=== PATIENT | male | born 1945 | race Caucasian/White ===

== ENCOUNTER 2018-04-07 12:16 | Inpatient (IN) | payer MEDICAID, MEDICARE, OTHER ==
--- NOTE | 2018-04-07 12:36 | EDM.PDOC ---
ED HPI GENERAL MEDICAL PROBLEM - General Chief Complaint: Respiratory Problem Stated Complaint: breathing issueses Time Seen by Provider: 04/07/18 12:36 Source of Information: Reports: Patient History Limitations: Reports: No Limitations - History of Present Illness INITIAL COMMENTS - FREE TEXT/NARRATIVE: pt has been ill for the past week and has been sob. He has diarrhea and has had it for the past 2 days. He has not been on antibiotics. Onset: Gradual, Other (Sick for the past week. ) Duration: Day(s): Location: Reports: Chest, Abdomen Associated Symptoms: Reports: Cough, Shortness of Breath, Other ( diarrhea. ) - Related Data Allergies Allergy/AdvReac Type Severity Reaction Status Date / Time No Known Allergies Allergy Verified 04/07/18 12:21 Home Meds: Home Meds Albuterol Sulfate [Ventolin Hfa] 1 - 2 puff INH QID PRN 02/27/18 [History] Apixaban [Eliquis] 5 mg PO BID 02/27/18 [History] Carvedilol [Coreg] 25 mg PO BID 02/27/18 [History] Furosemide [Lasix] 20 mg PO DAILY 02/27/18 [History] Lisinopril [Prinivil] 40 mg PO DAILY 02/27/18 [History] predniSONE 1 tab PO ASDIRECTED 04/07/18 [History] Social & Family History - Tobacco Use Smoking Status *Q: Light Tobacco Smoker Years of Tobacco use: 50 Packs/Tins Daily: 0.4 - Recreational Drug Use Recreational Drug Use: No ED ROS GENERAL - Review of Systems Review Of Systems: See Below Constitutional: Reports: Chills, Malaise, Weakness HEENT: Reports: No Symptoms Respiratory: Reports: Shortness of Breath, Sputum Cardiovascular: Reports: No Symptoms Endocrine: Reports: No Symptoms GI/Abdominal: Reports: Diarrhea : Reports: No Symptoms Musculoskeletal: Reports: No Symptoms Skin: Reports: No Symptoms ED EXAM, GENERAL - Physical Exam Exam: See Below Free Text/Narrative:: pt arrived diaphoretic, hypotensive and sob. He has been ill for the past week at home. He has gotten progrssively weak each day. Exam Limited By: No Limitations General Appearance: Alert, Moderate Distress, Other (pupils are equal and reactive. ) Ears: Normal TMs Nose: Normal Inspection Throat/Mouth: Normal Inspection Head: Atraumatic Neck: Normal Inspection Respiratory/Chest: Decreased Breath Sounds, Crackles, Wheezing Cardiovascular: Tachycardia, Irregularly Irregular, Other (rate is in the 120 range. ) GI/Abdominal: Soft, Non-Tender Rectal (Males) Exam: Other (pt has no masses is stool looks very bloody. ) Back Exam: Normal Inspection Extremities: Other ( pt has pluse 1 edema. ) Neurological: Alert, Oriented, Normal Cognition Psychiatric: Depressed Mood Course - Vital Signs Last Recorded V/S: Last Vital Signs Temp 35.4 C 04/07/18 12:17 Pulse 126 H 04/07/18 13:27 Resp 37 H 04/07/18 13:27 BP 79/41 L 04/07/18 13:27 Pulse Ox 98 04/07/18 13:27 - Orders/Labs/Meds Orders: Active Orders 24 hr Category Date Time Status BIPAP Adult [RT BiPAP/CPAP] [RC] ASDIRECTED Care 04/07/18 13:43 Active EKG Documentation Completion [RC] ASDIRECTED Care 04/07/18 12:35 Active RT Aerosol Therapy [RC] ASDIRECTED Care 04/07/18 13:12 Active Chest 1V Frontal [CR] Stat Exams 04/07/18 12:35 Taken CLOSTRIDIUM DIFFICILE BY PCR [RM] Stat Lab 04/07/18 13:03 Ordered CULTURE BLOOD [BC] Urgent Lab 04/07/18 12:37 Received CULTURE BLOOD [BC] Urgent Lab 04/07/18 12:42 Received HGB [HEMOGLOBIN] [HEME] Stat Lab 04/07/18 13:49 Ordered RED BLOOD CELLS LP [BBK] Stat Lab 04/07/18 12:42 Received TYPE AND SCREEN [BBK] Stat Lab 04/07/18 12:42 Received UA W/MICROSCOPIC [URIN] Urgent Lab 04/07/18 12:34 Ordered Piperacillin/Tazobactam/Dext [Zosyn in Dextrose Iso- Med 04/07/18 14:00 Active Osmotic 3.375 GM] 3.375 gm Premix Bag 1 bag IV ONETIME Sodium Chloride 0.9% [Normal Saline] 1,000 ml Med 04/07/18 13:00 Active IV ASDIRECTED Sodium Chloride 0.9% [Normal Saline] 1,000 ml Med 04/07/18 13:45 Active IV ASDIRECTED Blood Culture x2 Reflex Set [OM.PC] Urgent Oth 04/07/18 12:55 Ordered EKG 12 Lead [EK] Routine Ther 04/07/18 12:35 Ordered Medication Orders Sodium Chloride (Normal Saline) 1,000 mls @ 999 mls/hr IV ASDIRECTED BOBO Last Admin: 04/07/18 13:26 Dose: 999 mls/hr Sodium Chloride (Normal Saline) 1,000 mls @ 999 mls/hr IV ASDIRECTED BOBO Piperacillin/Tazobactam/ (Dextrose 3.375 gm/ Premix) 50 mls @ 100 mls/hr IV ONETIME ONE Stop: 04/07/18 14:29 Labs: Laboratory Tests 04/07/18 04/07/18 04/07/18 Range/Units 12:12 12:12 12:12 WBC 20.0 H (4.5-11.0) K/uL RBC 4.08 L (4.30-5.90) M/uL Hgb 12.7 (12.0-15.0) g/dL Hct 38.8 L (40.0-54.0) % MCV 95 (80-98) fL MCH 31 (27-31) pg MCHC 33 (32-36) % Plt Count 205 (150-400) K/uL Neut % (Auto) 87 H (36-66) % Lymph % (Auto) 7 L (24-44) % Heard % (Auto) 6 (2-6) % Eos % (Auto) 0 L (2-4) % Baso % (Auto) 0 (0-1) % Puncture Site ABG pH (7.350-7.450) ABG pCO2 (35.0-42.0) mmHg ABG pO2 (75.0-100.0) mmHg ABG HCO3 (22.0-26.0) mmol/L ABG Total CO2 (23.0-27.0) mmol/L ABG O2 Saturation (95.0-98.0) % ABG O2 Content (15.0-23.0) %vol ABG Base Excess mm/L ABG Hemoglobin (13.5-18.0) g/dL ABG Oxyhemoglobin % ABG Carboxyhemoglobin (0.0-1.6) % ABG Methemoglobin % Markus Test O2 Delivery Device Oxygen Flow Rate L Sodium 140 (140-148) mmol/L Potassium 5.5 H (3.6-5.2) mmol/L Chloride 103 (100-108) mmol/L Carbon Dioxide 28 (21-32) mmol/L Anion Gap 14.5 H (5.0-14.0) mmol/L BUN 108 H* (7-18) mg/dL Creatinine 2.2 H (0.8-1.3) mg/dL Est Cr Clr Drug Dosing 24.67 mL/min Estimated GFR (MDRD) 29 L (>60) Glucose 114 H (74-106) mg/dL Lactic Acid (0.4-2.0) mmol/L Calcium 8.9 (8.5-10.1) mg/dL Total Bilirubin 0.4 (0.2-1.0) mg/dL AST 18 (15-37) U/L ALT 31 (12-78) U/L Alkaline Phosphatase 54 (46-116) U/L Troponin I 0.028 (0.000-0.056) ng/mL NT-Pro-B Natriuret Pep 3953 H (5-125) pg/mL Total Protein 5.7 L (6.4-8.2) g/dL Albumin 2.8 L (3.4-5.0) g/dL Globulin 2.9 (2.3-3.5) g/dL Albumin/Globulin Ratio 1.0 L (1.2-2.2) 04/07/18 04/07/18 Range/Units 12:12 13:25 WBC (4.5-11.0) K/uL RBC (4.30-5.90) M/uL Hgb (12.0-15.0) g/dL Hct (40.0-54.0) % MCV (80-98) fL MCH (27-31) pg MCHC (32-36) % Plt Count (150-400) K/uL Neut % (Auto) (36-66) % Lymph % (Auto) (24-44) % Heard % (Auto) (2-6) % Eos % (Auto) (2-4) % Baso % (Auto) (0-1) % Puncture Site Rt radial ABG pH 7.420 (7.350-7.450) ABG pCO2 33.7 L (35.0-42.0) mmHg ABG pO2 93.7 (75.0-100.0) mmHg ABG HCO3 21.4 L (22.0-26.0) mmol/L ABG Total CO2 19.2 L (23.0-27.0) mmol/L ABG O2 Saturation 96.7 (95.0-98.0) % ABG O2 Content 16.6 (15.0-23.0) %vol ABG Base Excess -1.9 mm/L ABG Hemoglobin 12.4 L (13.5-18.0) g/dL ABG Oxyhemoglobin 95.0 % ABG Carboxyhemoglobin 1.2 (0.0-1.6) % ABG Methemoglobin 0.6 % Markus Test Pass O2 Delivery Device Nasal cannula Oxygen Flow Rate 2 L Sodium (140-148) mmol/L Potassium (3.6-5.2) mmol/L Chloride (100-108) mmol/L Carbon Dioxide (21-32) mmol/L Anion Gap (5.0-14.0) mmol/L BUN (7-18) mg/dL Creatinine (0.8-1.3) mg/dL Est Cr Clr Drug Dosing mL/min Estimated GFR (MDRD) (>60) Glucose (74-106) mg/dL Lactic Acid 4.0 H (0.4-2.0) mmol/L Calcium (8.5-10.1) mg/dL Total Bilirubin (0.2-1.0) mg/dL AST (15-37) U/L ALT (12-78) U/L Alkaline Phosphatase (46-116) U/L Troponin I (0.000-0.056) ng/mL NT-Pro-B Natriuret Pep (5-125) pg/mL Total Protein (6.4-8.2) g/dL Albumin (3.4-5.0) g/dL Globulin (2.3-3.5) g/dL Albumin/Globulin Ratio (1.2-2.2) Meds: Medications Generic Name Dose Route Start Last Admin Trade Name Freq PRN Reason Stop Dose Admin Sodium Chloride 1,000 mls @ 999 mls/hr 04/07/18 13:00 04/07/18 13:26 Normal Saline IV 999 mls/hr ASDIRECTED BOBO Administration Sodium Chloride 1,000 mls @ 999 mls/hr 06/02/18 13:45 Normal Saline IV ASDIRECTED BOBO Piperacillin/Tazobactam/ 50 mls @ 100 mls/hr 04/07/18 14:00 Dextrose 3.375 gm/ Premix IV 04/07/18 14:29 ONETIME ONE Discontinued Medications Generic Name Dose Route Start Last Admin Trade Name Luh PRN Reason Stop Dose Admin Albuterol 2.5 mg 04/07/18 13:12 04/07/18 13:31 Proventil Neb Soln NEB 04/07/18 13:13 2.5 mg ONETIME ONE Administration Levofloxacin/Dextrose 500 mg/ 100 mls @ 100 mls/hr 04/07/18 13:34 Premix IV 04/07/18 14:33 ONETIME ONE Aztreonam 1 gm/ Sodium 50 mls @ 100 mls/hr 04/07/18 13:35 Chloride IV 04/07/18 14:04 ONETIME ONE - Re-Assessments/Exams Free Text/Narrative Re-Assessment/Exam: 04/07/18 14:08 stool looks very bloody. His chest xray does not reveal a definite infiltrate. His bp with any activity is down in the 70s. He does not have a fever. His lactic acid is 4. his wbc is greater than 20,000. Blood cultures were drawn. We do not have a urine at this point. His ekg shows atrial fib which is not new. Departure - Departure Time of Disposition: 14:11 Disposition: Admitted As Inpatient 64 Condition: Fair Clinical Impression: Sepsis, GI bleeding, Respiratory distress - Discharge Information Referrals: PCP,None [Primary Care Provider] - Forms: ED Department Discharge Care Plan Goals: admit to Dr johnson - My Orders Last 24 Hours: My Active Orders 04/07/18 12:34 UA W/MICROSCOPIC [URIN] Urgent 04/07/18 12:35 EKG Documentation Completion [RC] ASDIRECTED Chest 1V Frontal [CR] Stat EKG 12 Lead [EK] Routine 04/07/18 12:37 CULTURE BLOOD [BC] Urgent 04/07/18 12:42 CULTURE BLOOD [BC] Urgent RED BLOOD CELLS LP [BBK] Stat TYPE AND SCREEN [BBK] Stat 04/07/18 12:55 Blood Culture x2 Reflex Set [OM.PC] Urgent 04/07/18 13:00 Sodium Chloride 0.9% [Normal Saline] 1,000 ml IV ASDIRECTED 04/07/18 13:03 CLOSTRIDIUM DIFFICILE BY PCR [RM] Stat 04/07/18 13:12 RT Aerosol Therapy [RC] ASDIRECTED 04/07/18 13:43 BIPAP Adult [RT BiPAP/CPAP] [RC] ASDIRECTED 04/07/18 13:45 Sodium Chloride 0.9% [Normal Saline] 1,000 ml IV ASDIRECTED 04/07/18 13:49 HGB [HEMOGLOBIN] [HEME] Stat 04/07/18 14:00 Piperacillin/Tazobactam/Dext [Zosyn in Dextrose Iso-Osmotic 3.375 GM] 3.375 gm Premix Bag 1 bag IV ONETIME - Assessment/Plan Last 24 Hours: My Active Orders 04/07/18 12:34 UA W/MICROSCOPIC [URIN] Urgent 04/07/18 12:35 EKG Documentation Completion [RC] ASDIRECTED Chest 1V Frontal [CR] Stat EKG 12 Lead [EK] Routine 04/07/18 12:37 CULTURE BLOOD [BC] Urgent 04/07/18 12:42 CULTURE BLOOD [BC] Urgent RED BLOOD CELLS LP [BBK] Stat TYPE AND SCREEN [BBK] Stat 04/07/18 12:55 Blood Culture x2 Reflex Set [OM.PC] Urgent 04/07/18 13:00 Sodium Chloride 0.9% [Normal Saline] 1,000 ml IV ASDIRECTED 04/07/18 13:03 CLOSTRIDIUM DIFFICILE BY PCR [RM] Stat 04/07/18 13:12 RT Aerosol Therapy [RC] ASDIRECTED 04/07/18 13:43 BIPAP Adult [RT BiPAP/CPAP] [RC] ASDIRECTED 04/07/18 13:45 Sodium Chloride 0.9% [Normal Saline] 1,000 ml IV ASDIRECTED 04/07/18 13:49 HGB [HEMOGLOBIN] [HEME] Stat 04/07/18 14:00 Piperacillin/Tazobactam/Dext [Zosyn in Dextrose Iso-Osmotic 3.375 GM] 3.375 gm Premix Bag 1 bag IV ONETIME
[2018-04-07] MEDS ORDERED: Sodium Chloride 0.9% 1,000 ML IV SCH ×2 (13:00→13:45)
[2018-04-07] MEDS ORDERED: Albuterol 0.083% 2.5 MG/3 ML Neb Soln NEB ONE (13:12)
[2018-04-07] MEDS ORDERED: Levofloxacin/Dextrose 5%-Water 500 MG in Premix Bag 1 BAG IV ONE (13:34)
[2018-04-07] MEDS ORDERED: Piperacillin/Tazobactam 3.375 GM in Sodium Chloride 0.9% 50 ML IV SCH (13:45)
[2018-04-07] MEDS ORDERED: Piperacillin/Tazobactam/Dext 3.375 GM in Premix Bag 1 BAG IV ONE (14:00)
[2018-04-07] MEDS ORDERED: Pantoprazole 40 MG Vial IVPUSH ONE ×2 (14:12→22:32)
--- NOTE | 2018-04-07 14:27 | PCM.HP ---
H&P History of Present Illness - General Date of Service: 04/07/18 Admit Problem/Dx: Admission Diagnosis/Problem Admission Diagnosis/Problem Sepsis Source of Information: Patient, Provider, RN Notes Reviewed History Limitations: Reports: No Limitations - History of Present Illness Initial Comments - Free Text/Narative: Mr. Renee is a 72-year-old gentleman who is admitted through the emergency department with hypoxia and sepsis. He reports that he is had difficulty over the past few months, diagnosed with atrial fibrillation in December and is currently on anticoagulation with Eliquis. Over the last few days is become more short of breath and has had a cough which has been productive of lightly colored sputum. Also over the last 24 hours has experienced bloody diarrhea. He denies significant abdominal pain and is not aware that he is had any temperature elevation. White blood count is elevated 20,000 and his lactic acid level is elevated as well. Blood pressure in the emergency department found to be low and he was also noted to be hypoxic, oxygen saturation has improved with supplemental oxygen. Despite improvement in saturation his respiratory rate has remained in the upper 20s. - Related Data Allergies/Adverse Reactions: Allergies Allergy/AdvReac Type Severity Reaction Status Date / Time No Known Allergies Allergy Verified 04/07/18 12:21 Home Medications: Home Meds Albuterol Sulfate [Ventolin Hfa] 1 - 2 puff INH QID PRN 02/27/18 [History] Apixaban [Eliquis] 5 mg PO BID 02/27/18 [History] Carvedilol [Coreg] 25 mg PO BID 02/27/18 [History] Furosemide [Lasix] 20 mg PO DAILY 02/27/18 [History] Lisinopril [Prinivil] 40 mg PO DAILY 02/27/18 [History] predniSONE 1 tab PO ASDIRECTED 04/07/18 [History] Past Medical History HEENT History: Reports: Cataract, Hard of Hearing, Impaired Vision Cardiovascular History: Reports: Afib, Hypertension Respiratory History: Reports: COPD Hematologic History: Reports: Anticoagulation Therapy Social & Family History - Tobacco Use Smoking Status *Q: Light Tobacco Smoker Years of Tobacco use: 50 Packs/Tins Daily: 0.4 - Recreational Drug Use Recreational Drug Use: No H&P Review of Systems - Review of Systems: Review Of Systems: See Below General: Reports: Weakness. Denies: Fever, Chills HEENT: Reports: No Symptoms Pulmonary: Reports: Shortness of Breath, Wheezing, Cough, Sputum. Denies: Hemoptysis Cardiovascular: Reports: Dyspnea on Exertion. Denies: Chest Pain, Palpitations , Orthopnea, PND, Edema, Lightheadedness Gastrointestinal: Reports: Anorexia, Diarrhea, Hematochezia. Denies: Constipation, Difficulty Swallowing, Distension, Hematemesis, Nausea, Vomiting Genitourinary: Reports: No Symptoms Musculoskeletal: Reports: No Symptoms Skin: Reports: No Symptoms Psychiatric: Reports: No Symptoms Neurological: Reports: No Symptoms Hematologic/Lymphatic: Reports: No Symptoms Immunologic: Reports: No Symptoms Exam - Exam Exam: See Below - Vital Signs Vital Signs: Last Vital Signs Temp 95.8 F 04/07/18 12:17 Pulse 126 H 04/07/18 13:27 Resp 37 H 04/07/18 13:27 BP 79/41 L 04/07/18 13:27 Pulse Ox 98 04/07/18 13:27 Weight: 216 lb - Exam Quality Assessment: Supplemental Oxygen (BiPAP), Urinary Catheter, DVT Prophylaxis. No: Central Line/PICC General: Alert, Oriented, Cooperative, Moderate Distress HEENT: Conjunctiva Clear, Hearing Intact, Normal Nasal Septum, Posterior Pharynx Clear, Pupils Equal. No: Mucosa Moist & [place] Neck: Supple, Trachea Midline, +2 Carotid Pulse wo Bruit Lungs: Decreased Breath Sounds, Rhonchi, Wheezing. No: Crackles, Rales, Rub Cardiovascular: Normal S1, Normal S2, Irregular Rhythm, Tachycardia. No: Systolic Murmur, Diastolic Murmur GI/Abdominal Exam: Soft, Non-Tender, No Organomegaly, No Distention Back Exam: Normal Inspection, Full Range of Motion Extremities: Non-Tender, No Pedal Edema Skin: Warm, Dry, Intact Neurological: Cranial Nerves Intact, Strength Equal Bilateral, Normal Speech, Normal Tone, Sensation Intact. No: Focal Deficit Neuro Extensive - Mental Status: Alert, Oriented x3, Normal Mood/Affect, Normal Cognition, Memory Intact - Patient Data Lab Results Last 24 hrs: Laboratory Results - last 24 hr 04/07/18 04/07/18 04/07/18 Range/Units 12:12 12:12 12:12 WBC 20.0 H (4.5-11.0) K/uL RBC 4.08 L (4.30-5.90) M/uL Hgb 12.7 (12.0-15.0) g/dL Hct 38.8 L (40.0-54.0) % MCV 95 (80-98) fL MCH 31 (27-31) pg MCHC 33 (32-36) % Plt Count 205 (150-400) K/uL Neut % (Auto) 87 H (36-66) % Lymph % (Auto) 7 L (24-44) % Craven % (Auto) 6 (2-6) % Eos % (Auto) 0 L (2-4) % Baso % (Auto) 0 (0-1) % Puncture Site ABG pH (7.350-7.450) ABG pCO2 (35.0-42.0) mmHg ABG pO2 (75.0-100.0) mmHg ABG HCO3 (22.0-26.0) mmol/L ABG Total CO2 (23.0-27.0) mmol/L ABG O2 Saturation (95.0-98.0) % ABG O2 Content (15.0-23.0) %vol ABG Base Excess mm/L ABG Hemoglobin (13.5-18.0) g/dL ABG Oxyhemoglobin % ABG Carboxyhemoglobin (0.0-1.6) % ABG Methemoglobin % Markus Test O2 Delivery Device Oxygen Flow Rate L Sodium 140 (140-148) mmol/L Potassium 5.5 H (3.6-5.2) mmol/L Chloride 103 (100-108) mmol/L Carbon Dioxide 28 (21-32) mmol/L Anion Gap 14.5 H (5.0-14.0) mmol/L BUN 108 H* (7-18) mg/dL Creatinine 2.2 H (0.8-1.3) mg/dL Est Cr Clr Drug Dosing 24.67 mL/min Estimated GFR (MDRD) 29 L (>60) Glucose 114 H (74-106) mg/dL Lactic Acid (0.4-2.0) mmol/L Calcium 8.9 (8.5-10.1) mg/dL Total Bilirubin 0.4 (0.2-1.0) mg/dL AST 18 (15-37) U/L ALT 31 (12-78) U/L Alkaline Phosphatase 54 (46-116) U/L Troponin I 0.028 (0.000-0.056) ng/mL NT-Pro-B Natriuret Pep 3953 H (5-125) pg/mL Total Protein 5.7 L (6.4-8.2) g/dL Albumin 2.8 L (3.4-5.0) g/dL Globulin 2.9 (2.3-3.5) g/dL Albumin/Globulin Ratio 1.0 L (1.2-2.2) 04/07/18 04/07/18 Range/Units 12:12 13:25 WBC (4.5-11.0) K/uL RBC (4.30-5.90) M/uL Hgb (12.0-15.0) g/dL Hct (40.0-54.0) % MCV (80-98) fL MCH (27-31) pg MCHC (32-36) % Plt Count (150-400) K/uL Neut % (Auto) (36-66) % Lymph % (Auto) (24-44) % Craven % (Auto) (2-6) % Eos % (Auto) (2-4) % Baso % (Auto) (0-1) % Puncture Site Rt radial ABG pH 7.420 (7.350-7.450) ABG pCO2 33.7 L (35.0-42.0) mmHg ABG pO2 93.7 (75.0-100.0) mmHg ABG HCO3 21.4 L (22.0-26.0) mmol/L ABG Total CO2 19.2 L (23.0-27.0) mmol/L ABG O2 Saturation 96.7 (95.0-98.0) % ABG O2 Content 16.6 (15.0-23.0) %vol ABG Base Excess -1.9 mm/L ABG Hemoglobin 12.4 L (13.5-18.0) g/dL ABG Oxyhemoglobin 95.0 % ABG Carboxyhemoglobin 1.2 (0.0-1.6) % ABG Methemoglobin 0.6 % Markus Test Pass O2 Delivery Device Nasal cannula Oxygen Flow Rate 2 L Sodium (140-148) mmol/L Potassium (3.6-5.2) mmol/L Chloride (100-108) mmol/L Carbon Dioxide (21-32) mmol/L Anion Gap (5.0-14.0) mmol/L BUN (7-18) mg/dL Creatinine (0.8-1.3) mg/dL Est Cr Clr Drug Dosing mL/min Estimated GFR (MDRD) (>60) Glucose (74-106) mg/dL Lactic Acid 4.0 H (0.4-2.0) mmol/L Calcium (8.5-10.1) mg/dL Total Bilirubin (0.2-1.0) mg/dL AST (15-37) U/L ALT (12-78) U/L Alkaline Phosphatase (46-116) U/L Troponin I (0.000-0.056) ng/mL NT-Pro-B Natriuret Pep (5-125) pg/mL Total Protein (6.4-8.2) g/dL Albumin (3.4-5.0) g/dL Globulin (2.3-3.5) g/dL Albumin/Globulin Ratio (1.2-2.2) Result Diagrams: 04/07/18 14:18 04/07/18 12:12 *Q Meaningful Use (ADM) - VTE *Q VTE Pharmacological Contraindications *Q: High INR Value - VTE Risk Assess *Q Each Risk Factor Represents 1 Point: Obesity ( BMI > 25 kg/m2), Sepsis, Abnormal Pulmonary Function (COPD) Total Score 1 Point Risk Factors: 3 Each Risk Factor Represents 2 Points: Age 60 - 74 Years Total Score 2 Point Risk Factors: 2 Each Risk Factor Represents 3 Points: None Total Score 3 Point Risk Factors: 0 Each Risk Factor Represents 5 Points: None Total Score 5 Point Risk Factors: 0 Venous Thromboembolism Risk Factor Score *Q: 5 Problem List Initiated/Reviewed/Updated: Yes Orders Last 24hrs: Active Orders 24 hr Category Date Time Status Patient Status Manage Transfer [TRANSFER] Routine ADT 04/07/18 14:07 Ordered BIPAP Adult [RT BiPAP/CPAP] [] ASDIRECTED Care 04/07/18 13:43 Active EKG Documentation Completion [RC] ASDIRECTED Care 04/07/18 12:35 Active RT Aerosol Therapy [RC] ASDIRECTED Care 04/07/18 13:12 Active Chest 1V Frontal [CR] Stat Exams 04/07/18 12:35 Taken CLOSTRIDIUM DIFFICILE BY PCR [RM] Stat Lab 04/07/18 13:03 Ordered CULTURE BLOOD [BC] Urgent Lab 04/07/18 12:37 Received CULTURE BLOOD [BC] Urgent Lab 04/07/18 12:42 Received HGB [HEMOGLOBIN] [HEME] Stat Lab 04/07/18 13:49 Ordered RED BLOOD CELLS LP [BBK] Stat Lab 04/07/18 12:42 Received TYPE AND SCREEN [BBK] Stat Lab 04/07/18 12:42 Received UA W/MICROSCOPIC [URIN] Urgent Lab 04/07/18 12:34 Ordered Piperacillin/Tazobactam/Dext [Zosyn in Dextrose Iso- Med 04/07/18 14:00 Active Osmotic 3.375 GM] 3.375 gm Premix Bag 1 bag IV ONETIME Sodium Chloride 0.9% [Normal Saline] 1,000 ml Med 04/07/18 13:00 Active IV ASDIRECTED Sodium Chloride 0.9% [Normal Saline] 1,000 ml Med 04/07/18 13:45 Active IV ASDIRECTED Blood Culture x2 Reflex Set [OM.PC] Urgent Oth 04/07/18 12:55 Ordered Resuscitation Status Routine Resus Stat 04/07/18 14:10 Ordered EKG 12 Lead [EK] Routine Ther 04/07/18 12:35 Ordered Medication Orders Sodium Chloride (Normal Saline) 1,000 mls @ 999 mls/hr IV ASDIRECTED BOBO Last Admin: 04/07/18 13:26 Dose: 999 mls/hr Sodium Chloride (Normal Saline) 1,000 mls @ 999 mls/hr IV ASDIRECTED [facility] Piperacillin/Tazobactam/ (Dextrose 3.375 gm/ Premix) 50 mls @ 100 mls/hr IV ONETIME ONE Stop: 04/07/18 14:29 Last Admin: 04/07/18 14:15 Dose: 100 mls/hr Assessment/Plan Comment:: ASSESSMENT AND PLAN SEPSIS-most likely source is pulmonary, he has had some blood in his stool but denies significant abdominal pain or other GI symptoms. No other obvious source of infection identified thus far on evaluation. -Blood cultures pending -IV fluids per sepsis protocol -Norepinephrine IV if no improvement with IV fluids -CT scan of the chest, abdomen, and pelvis -IV vancomycin, Zosyn, and levofloxacin, pending culture results HYPOXIC RESPIRATORY FAILURE-underlying COPD, but is not oxygen dependent at home. Likely secondary to underlying pulmonary infection, although chest x-ray appears to be clear -CT scan of the chest as above -Noninvasive positive pressure ventilation -Supplemental oxygen as needed -Nebulized albuterol and duo nebs -Solu-Medrol 40 mg IV every 6 hours ACUTE KIDNEY INJURY-history of underlying chronic kidney disease -Closely monitor urine output and renal function ATRIAL FIBRILLATION-rate elevated, likely secondary to sepsis and hypoxia -Cardiac monitoring -Resume rate slowing medication when hypotension has resolved -Continue anticoagulation with Eliquis, although may need to consider holding this if he continues to have some blood in his stool HEMATOCHEZIA-at this point seems to be relatively mild bleed -Follow-up hemoglobin in a.m., sooner if bleeding seems to increase -Colonoscopy when hemodynamically stable and respiratory status improves MAINTENANCE ISSUES -DVT prophylaxis; current anticoagulation should provide adequate DVT prophylaxis -GI prophylaxis; not indicated -Núñez catheter; will be placed to closely monitor urine output -Nutrition; regular diet -Nicotine dependence; not required CODE STATUS-FULL CODE ADMISSION STATUS-patient will be admitted to inpatient status, expect at least a 2 night hospital stay for evaluation and management of problems as outlined above. At the time of this admission I do not reasonably expected evaluation and management of this problem will require more than a 96 hour hospital stay. DISPOSITION-anticipate discharge to home after the hospital stay. PRIMARY CARE PROVIDER-Dr. Grant
[2018-04-07] MEDS ORDERED: Ondansetron 4 MG/2 ML SDV IV PRN (14:39)
[2018-04-07] MEDS ORDERED: Lactated Ringers 1,000 ML IV SCH (14:39)
[2018-04-07] MEDS ORDERED: Magnesium Hydroxide 400 MG/5 ML Susp 30 ML Cup PO PRN (14:39)
[2018-04-07] MEDS ORDERED: Polyethylene Glycol 3350 Powder 17 GM Packet PO PRN (14:39)
[2018-04-07] MEDS ORDERED: Acetaminophen 325 MG Tab PO PRN (14:39)
[2018-04-07] MEDS ORDERED: oxyCODONE 5 MG Tab PO PRN (14:39)
[2018-04-07] MEDS ORDERED: Sodium Chloride 0.9% 10 ML Syringe FLUSH PRN (14:39)
[2018-04-07] MEDS ORDERED: Albuterol 0.083% 2.5 MG/3 ML Neb Soln NEB PRN (14:39)
[2018-04-07] MEDS ORDERED: Vancomycin 1 GM SDV IV SCH (15:00)
[2018-04-07] MEDS: Albuterol/Ipratropium 3.0-0.5 MG/3 ML Neb Soln NEB SCH ×2 (15:01→21:22)
[2018-04-07] MEDS: methylPREDNISolone Sodium Succinate 40 MG/1 ML SDV IVPUSH SCH ×2 (15:29→21:22)
[2018-04-07] MEDS: Levofloxacin/Dextrose 5%-Water 750 MG in Premix Bag 1 BAG IV SCH (15:34)
[2018-04-07] MEDS ORDERED: Norepinephrine 4 MG/4 ML SDV ONE (17:06)
[2018-04-07] MEDS ORDERED: Dextrose 5% in Water 250 ML ONE (17:08)
[2018-04-07] MEDS: Norepinephrine 4 MG in Dextrose 5% in Water 246 ML IV SCH ×2 (17:19)
[2018-04-07] MEDS: Lactated Ringers 1,000 ML IV SCH (17:42)
[2018-04-07] MEDS: Piperacillin/Tazobactam/Dext 3.375 GM in Premix Bag 1 BAG IV SCH (20:04)
[2018-04-07] MEDS: Apixaban 5 MG Tab PO SCH (21:22)
[2018-04-07] MEDS ORDERED: Lactated Ringers 500 ML IV ONE (22:03)
[2018-04-07] MEDS ORDERED: Sodium Chloride 0.9% 100 ML with Pantoprazole 80 MG IV SCH ×2 (22:45)
[2018-04-07] MEDS ORDERED: Vasopressin 20 Units/1 ML MDV ONE ×2 (22:54→22:58)
[2018-04-07] MEDS ORDERED: Sodium Chloride 0.9% 100 ML ONE (22:59)
[2018-04-07] MEDS ORDERED: Pantoprazole 80 MG in Sodium Chloride 0.9% 100 ML IV SCH (23:00)
[2018-04-08] MEDS: Lactated Ringers 1,000 ML IV SCH ×3 (01:27→16:47)
[2018-04-08] MEDS: Piperacillin/Tazobactam/Dext 3.375 GM in Premix Bag 1 BAG IV SCH ×4 (02:15→19:46)
[2018-04-08] MEDS: Norepinephrine 4 MG in Dextrose 5% in Water 246 ML IV SCH ×8 (02:16→21:53)
[2018-04-08] MEDS: methylPREDNISolone Sodium Succinate 40 MG/1 ML SDV IVPUSH SCH ×4 (02:30→20:31)
[2018-04-08] MEDS: Albuterol/Ipratropium 3.0-0.5 MG/3 ML Neb Soln NEB SCH ×4 (07:28→20:31)
--- NOTE | 2018-04-08 09:05 | PCM.PN ---
- General Info Date of Service: 04/08/18 Admission Dx/Problem (Free Text): Admission Diagnosis/Problem Admission Diagnosis/Problem Sepsis Functional Status: Reports: Pain Controlled, Tolerating Diet, Urinating - Review of Systems General: Reports: No Symptoms HEENT: Reports: No Symptoms Pulmonary: Reports: Shortness of Breath (not beyond baseline) Cardiovascular: Reports: No Symptoms Gastrointestinal: Reports: Hematochezia (feels it is improving) Genitourinary: Reports: No Symptoms Musculoskeletal: Reports: No Symptoms Skin: Reports: No Symptoms - Patient Data Vitals - Most Recent: Last Vital Signs Temp 97.6 F 04/08/18 07:33 Pulse 94 04/08/18 07:33 Resp 20 04/08/18 07:33 BP 96/43 L 04/08/18 07:33 Pulse Ox 96 04/08/18 07:33 Weight - Most Recent: 97.976 kg I&O - Last 24 Hours: Intake & Output 04/07/18 04/08/18 04/08/18 22:59 06:59 14:59 Intake Total 2281 2626 Output Total 590 1075 Balance 1691 1551 Lab Results Last 24 Hours: Laboratory Results - last 24 hr 04/07/18 04/07/18 04/07/18 Range/Units 12:12 12:12 12:12 WBC 20.0 H (4.5-11.0) K/uL RBC 4.08 L (4.30-5.90) M/uL Hgb 12.7 (12.0-15.0) g/dL Hct 38.8 L (40.0-54.0) % MCV 95 (80-98) fL MCH 31 (27-31) pg MCHC 33 (32-36) % Plt Count 205 (150-400) K/uL Neut % (Auto) 87 H (36-66) % Lymph % (Auto) 7 L (24-44) % [place] % (Auto) 6 (2-6) % Eos % (Auto) 0 L (2-4) % Baso % (Auto) 0 (0-1) % Puncture Site ABG pH (7.350-7.450) ABG pCO2 (35.0-42.0) mmHg ABG pO2 (75.0-100.0) mmHg ABG HCO3 (22.0-26.0) mmol/L ABG Total CO2 (23.0-27.0) mmol/L ABG O2 Saturation (95.0-98.0) % ABG O2 Content (15.0-23.0) %vol ABG Base Excess mm/L ABG Hemoglobin (13.5-18.0) g/dL ABG Oxyhemoglobin % ABG Carboxyhemoglobin (0.0-1.6) % ABG Methemoglobin % Markus Test O2 Delivery Device Oxygen Flow Rate L Sodium 140 (140-148) mmol/L Potassium 5.5 H (3.6-5.2) mmol/L Chloride 103 (100-108) mmol/L Carbon Dioxide 28 (21-32) mmol/L Anion Gap 14.5 H (5.0-14.0) mmol/L BUN 108 H* (7-18) mg/dL Creatinine 2.2 H (0.8-1.3) mg/dL Est Cr Clr Drug Dosing 24.67 mL/min Estimated GFR (MDRD) 29 L (>60) Glucose 114 H (74-106) mg/dL Lactic Acid (0.4-2.0) mmol/L Calcium 8.9 (8.5-10.1) mg/dL Magnesium (1.8-2.4) mg/dL Total Bilirubin 0.4 (0.2-1.0) mg/dL AST 18 (15-37) U/L ALT 31 (12-78) U/L Alkaline Phosphatase 54 (46-116) U/L Troponin I 0.028 (0.000-0.056) ng/mL NT-Pro-B Natriuret Pep 3953 H (5-125) pg/mL Total Protein 5.7 L (6.4-8.2) g/dL Albumin 2.8 L (3.4-5.0) g/dL Globulin 2.9 (2.3-3.5) g/dL Albumin/Globulin Ratio 1.0 L (1.2-2.2) Urine Color Urine Appearance Urine pH (4.5-8.0) Ur Specific [place] (1.008-1.030) Urine Protein (NEGATIVE) mg/dL Urine Glucose (UA) (NEGATIVE) mg/dL Urine Ketones (NEGATIVE) mg/dL Urine Occult Blood (NEGATIVE) Urine Nitrite (NEGAITVE) Urine Bilirubin (NEGATIVE) Urine Urobilinogen (NORMAL) mg/dL Ur Leukocyte Esterase (NEGATIVE) Urine RBC (0-5) Urine WBC (0-5) Ur Epithelial Cells Amorphous Sediment Urine Bacteria Urine Mucus Blood Type Gel Antibody Screen Crossmatch 04/07/18 04/07/18 04/07/18 Range/Units 12:12 12:34 12:42 WBC (4.5-11.0) K/uL RBC (4.30-5.90) M/uL Hgb (12.0-15.0) g/dL Hct (40.0-54.0) % MCV (80-98) fL MCH (27-31) pg MCHC (32-36) % Plt Count (150-400) K/uL Neut % (Auto) (36-66) % Lymph % (Auto) (24-44) % [place] % (Auto) (2-6) % Eos % (Auto) (2-4) % Baso % (Auto) (0-1) % Puncture Site ABG pH (7.350-7.450) ABG pCO2 (35.0-42.0) mmHg ABG pO2 (75.0-100.0) mmHg ABG HCO3 (22.0-26.0) mmol/L ABG Total CO2 (23.0-27.0) mmol/L ABG O2 Saturation (95.0-98.0) % ABG O2 Content (15.0-23.0) %vol ABG Base Excess mm/L ABG Hemoglobin (13.5-18.0) g/dL ABG Oxyhemoglobin % ABG Carboxyhemoglobin (0.0-1.6) % ABG Methemoglobin % Markus Test O2 Delivery Device Oxygen Flow Rate L Sodium (140-148) mmol/L Potassium (3.6-5.2) mmol/L Chloride (100-108) mmol/L Carbon Dioxide (21-32) mmol/L Anion Gap (5.0-14.0) mmol/L BUN (7-18) mg/dL Creatinine (0.8-1.3) mg/dL Est Cr Clr Drug Dosing mL/min Estimated GFR (MDRD) (>60) Glucose (74-106) mg/dL Lactic Acid 4.0 H (0.4-2.0) mmol/L Calcium (8.5-10.1) mg/dL Magnesium (1.8-2.4) mg/dL Total Bilirubin (0.2-1.0) mg/dL AST (15-37) U/L ALT (12-78) U/L Alkaline Phosphatase (46-116) U/L Troponin I (0.000-0.056) ng/mL NT-Pro-B Natriuret Pep (5-125) pg/mL Total Protein (6.4-8.2) g/dL Albumin (3.4-5.0) g/dL Globulin (2.3-3.5) g/dL Albumin/Globulin Ratio (1.2-2.2) Urine Color Yellow Urine Appearance Clear Urine pH 5.0 (4.5-8.0) Ur Specific [place] 1.015 (1.008-1.030) Urine Protein Negative (NEGATIVE) mg/dL Urine Glucose (UA) Normal (NEGATIVE) mg/dL Urine Ketones Negative (NEGATIVE) mg/dL Urine Occult Blood Negative (NEGATIVE) Urine Nitrite Negative (NEGAITVE) Urine Bilirubin Small (NEGATIVE) Urine Urobilinogen Normal (NORMAL) mg/dL Ur Leukocyte Esterase Negative (NEGATIVE) Urine RBC Not seen (0-5) Urine WBC Not seen (0-5) Ur Epithelial Cells Not seen Amorphous Sediment Few Urine Bacteria Not seen Urine Mucus Not seen Blood Type O POSITIVE Gel Antibody Screen Negative Crossmatch See Detail 04/07/18 04/07/18 04/07/18 Range/Units 13:25 14:18 19:26 WBC (4.5-11.0) K/uL RBC (4.30-5.90) M/uL Hgb 11.6 L (12.0-15.0) g/dL Hct (40.0-54.0) % MCV (80-98) fL MCH (27-31) pg MCHC (32-36) % Plt Count (150-400) K/uL Neut % (Auto) (36-66) % Lymph % (Auto) (24-44) % [place] % (Auto) (2-6) % Eos % (Auto) (2-4) % Baso % (Auto) (0-1) % Puncture Site Rt radial ABG pH 7.420 (7.350-7.450) ABG pCO2 33.7 L (35.0-42.0) mmHg ABG pO2 93.7 (75.0-100.0) mmHg ABG HCO3 21.4 L (22.0-26.0) mmol/L ABG Total CO2 19.2 L (23.0-27.0) mmol/L ABG O2 Saturation 96.7 (95.0-98.0) % ABG O2 Content 16.6 (15.0-23.0) %vol ABG Base Excess -1.9 mm/L ABG Hemoglobin 12.4 L (13.5-18.0) g/dL ABG Oxyhemoglobin 95.0 % ABG Carboxyhemoglobin 1.2 (0.0-1.6) % ABG Methemoglobin 0.6 % Markus Test Pass O2 Delivery Device Nasal cannula Oxygen Flow Rate 2 L Sodium (140-148) mmol/L Potassium (3.6-5.2) mmol/L Chloride (100-108) mmol/L Carbon Dioxide (21-32) mmol/L Anion Gap (5.0-14.0) mmol/L BUN (7-18) mg/dL Creatinine (0.8-1.3) mg/dL Est Cr Clr Drug Dosing mL/min Estimated GFR (MDRD) (>60) Glucose (74-106) mg/dL Lactic Acid 2.6 H (0.4-2.0) mmol/L Calcium (8.5-10.1) mg/dL Magnesium (1.8-2.4) mg/dL Total Bilirubin (0.2-1.0) mg/dL AST (15-37) U/L ALT (12-78) U/L Alkaline Phosphatase (46-116) U/L Troponin I (0.000-0.056) ng/mL NT-Pro-B Natriuret Pep (5-125) pg/mL Total Protein (6.4-8.2) g/dL Albumin (3.4-5.0) g/dL Globulin (2.3-3.5) g/dL Albumin/Globulin Ratio (1.2-2.2) Urine Color Urine Appearance Urine pH (4.5-8.0) Ur Specific [place] (1.008-1.030) Urine Protein (NEGATIVE) mg/dL Urine Glucose (UA) (NEGATIVE) mg/dL Urine Ketones (NEGATIVE) mg/dL Urine Occult Blood (NEGATIVE) Urine Nitrite (NEGAITVE) Urine Bilirubin (NEGATIVE) Urine Urobilinogen (NORMAL) mg/dL Ur Leukocyte Esterase (NEGATIVE) Urine RBC (0-5) Urine WBC (0-5) Ur Epithelial Cells Amorphous Sediment Urine Bacteria Urine Mucus Blood Type Gel Antibody Screen Crossmatch 04/07/18 04/08/18 04/08/18 Range/Units 22:22 05:58 05:58 WBC 22.8 H (4.5-11.0) K/uL RBC 3.11 L (4.30-5.90) M/uL Hgb 10.0 L 9.7 L (12.0-15.0) g/dL Hct 29.5 L (40.0-54.0) % MCV 95 (80-98) fL MCH 31 (27-31) pg MCHC 33 (32-36) % Plt Count 166 (150-400) K/uL Neut % (Auto) 89 H (36-66) % Lymph % (Auto) 5 L (24-44) % [place] % (Auto) 6 (2-6) % Eos % (Auto) 0 L (2-4) % Baso % (Auto) 0 (0-1) % Puncture Site ABG pH (7.350-7.450) ABG pCO2 (35.0-42.0) mmHg ABG pO2 (75.0-100.0) mmHg ABG HCO3 (22.0-26.0) mmol/L ABG Total CO2 (23.0-27.0) mmol/L ABG O2 Saturation (95.0-98.0) % ABG O2 Content (15.0-23.0) %vol ABG Base Excess mm/L ABG Hemoglobin (13.5-18.0) g/dL ABG Oxyhemoglobin % ABG Carboxyhemoglobin (0.0-1.6) % ABG Methemoglobin % Markus Test O2 Delivery Device Oxygen Flow Rate L Sodium (140-148) mmol/L Potassium (3.6-5.2) mmol/L Chloride (100-108) mmol/L Carbon Dioxide (21-32) mmol/L Anion Gap (5.0-14.0) mmol/L BUN (7-18) mg/dL Creatinine (0.8-1.3) mg/dL Est Cr Clr Drug Dosing mL/min Estimated GFR (MDRD) (>60) Glucose (74-106) mg/dL Lactic Acid 3.3 H (0.4-2.0) mmol/L Calcium (8.5-10.1) mg/dL Magnesium (1.8-2.4) mg/dL Total Bilirubin (0.2-1.0) mg/dL AST (15-37) U/L ALT (12-78) U/L Alkaline Phosphatase (46-116) U/L Troponin I (0.000-0.056) ng/mL NT-Pro-B Natriuret Pep (5-125) pg/mL Total Protein (6.4-8.2) g/dL Albumin (3.4-5.0) g/dL Globulin (2.3-3.5) g/dL Albumin/Globulin Ratio (1.2-2.2) Urine Color Urine Appearance Urine pH (4.5-8.0) Ur Specific [place] (1.008-1.030) Urine Protein (NEGATIVE) mg/dL Urine Glucose (UA) (NEGATIVE) mg/dL Urine Ketones (NEGATIVE) mg/dL Urine Occult Blood (NEGATIVE) Urine Nitrite (NEGAITVE) Urine Bilirubin (NEGATIVE) Urine Urobilinogen (NORMAL) mg/dL Ur Leukocyte Esterase (NEGATIVE) Urine RBC (0-5) Urine WBC (0-5) Ur Epithelial Cells Amorphous Sediment Urine Bacteria Urine Mucus Blood Type Gel Antibody Screen Crossmatch 04/08/18 Range/Units 05:58 WBC (4.5-11.0) K/uL RBC (4.30-5.90) M/uL Hgb (12.0-15.0) g/dL Hct (40.0-54.0) % MCV (80-98) fL MCH (27-31) pg MCHC (32-36) % Plt Count (150-400) K/uL Neut % (Auto) (36-66) % Lymph % (Auto) (24-44) % [place] % (Auto) (2-6) % Eos % (Auto) (2-4) % Baso % (Auto) (0-1) % Puncture Site ABG pH (7.350-7.450) ABG pCO2 (35.0-42.0) mmHg ABG pO2 (75.0-100.0) mmHg ABG HCO3 (22.0-26.0) mmol/L ABG Total CO2 (23.0-27.0) mmol/L ABG O2 Saturation (95.0-98.0) % ABG O2 Content (15.0-23.0) %vol ABG Base Excess mm/L ABG Hemoglobin (13.5-18.0) g/dL ABG Oxyhemoglobin % ABG Carboxyhemoglobin (0.0-1.6) % ABG Methemoglobin % Markus Test O2 Delivery Device Oxygen Flow Rate L Sodium 139 L (140-148) mmol/L Potassium 5.2 (3.6-5.2) mmol/L Chloride 105 (100-108) mmol/L Carbon Dioxide 25 (21-32) mmol/L Anion Gap 14.2 H (5.0-14.0) mmol/L BUN 94 H* (7-18) mg/dL Creatinine 1.7 H (0.8-1.3) mg/dL Est Cr Clr Drug Dosing 31.92 mL/min Estimated GFR (MDRD) 40 L (>60) Glucose 220 H (74-106) mg/dL Lactic Acid (0.4-2.0) mmol/L Calcium 8.3 L (8.5-10.1) mg/dL Magnesium 1.7 L (1.8-2.4) mg/dL Total Bilirubin (0.2-1.0) mg/dL AST (15-37) U/L ALT (12-78) U/L Alkaline Phosphatase (46-116) U/L Troponin I (0.000-0.056) ng/mL NT-Pro-B Natriuret Pep (5-125) pg/mL Total Protein (6.4-8.2) g/dL Albumin (3.4-5.0) g/dL Globulin (2.3-3.5) g/dL Albumin/Globulin Ratio (1.2-2.2) Urine Color Urine Appearance Urine pH (4.5-8.0) Ur Specific [place] (1.008-1.030) Urine Protein (NEGATIVE) mg/dL Urine Glucose (UA) (NEGATIVE) mg/dL Urine Ketones (NEGATIVE) mg/dL Urine Occult Blood (NEGATIVE) Urine Nitrite (NEGAITVE) Urine Bilirubin (NEGATIVE) Urine Urobilinogen (NORMAL) mg/dL Ur Leukocyte Esterase (NEGATIVE) Urine RBC (0-5) Urine WBC (0-5) Ur Epithelial Cells Amorphous Sediment Urine Bacteria Urine Mucus Blood Type Gel Antibody Screen Crossmatch [place] Results Last 24 Hours: Microbiology 04/07/18 13:00 Gram Stain - Final Sputum - Expectorated Respiratory Culture - Preliminary Med Orders - Current: Current Medications Acetaminophen (Tylenol) 650 mg PO Q4H PRN PRN Reason: Pain (Mild 1-3)/fever Albuterol (Proventil Neb Soln) 2.5 mg NEB Q4H PRN PRN Reason: Shortness Of Breath/wheezing Last Admin: 04/08/18 03:47 Dose: 2.5 mg Albuterol/Ipratropium (Duoneb 3.0-0.5 Mg/3 Ml) 3 ml NEB QIDRT [facility] Last Admin: 04/08/18 07:28 Dose: 3 ml Apixaban (Eliquis) 5 mg PO BID [facility] Last Admin: 04/07/18 21:22 Dose: 5 mg Lactated Ringer's (Ringers, Lactated) 1,000 mls @ 125 mls/hr IV ASDIRECTED [facility] Last Admin: 04/08/18 08:33 Dose: 125 mls/hr Levofloxacin/Dextrose 750 mg/ (Premix) 150 mls @ 100 mls/hr IV Q48H [facility] Last Admin: 04/07/18 15:34 Dose: 100 mls/hr Piperacillin/Tazobactam/ (Dextrose 3.375 gm/ Premix) 50 mls @ 100 mls/hr IV Q6H [facility] Last Admin: 04/08/18 08:24 Dose: 100 mls/hr Vancomycin HCl 1.5 gm/ Sodium (Chloride) 250 mls @ 167 mls/hr IV Q24H [facility] Last Admin: 04/07/18 17:26 Dose: 167 mls/hr Norepinephrine Bitartrate 4 mg (/ Dextrose/Water) 250 mls @ 7.5 mls/hr IV TITRATE BOBO; Protocol Last Titration: 04/08/18 08:05 Dose: 12 mcg/min, 45 mls/hr Vasopressin 100 units/ Sodium (Chloride) 100 mls @ 6 mls/hr IV TITRATE BOBO; Protocol Last Titration: 04/08/18 08:42 Dose: 0.05 units/min, 3 mls/hr Pantoprazole Sodium 80 mg/ (Sodium Chloride) 100 mls @ 10 mls/hr IV Q10H [facility] Last Admin: 04/07/18 23:19 Dose: 8 mls/hr Magnesium Sulfate 2 gm/ Premix 50 mls @ 12.5 mls/hr IV ONETIME ONE Stop: 04/08/18 12:57 Magnesium Hydroxide (Milk Of Magnesia) 30 ml PO Q12H PRN PRN Reason: Constipation Methylprednisolone Sodium Succinate (Solu-Medrol) 40 mg IVPUSH Q6H [facility] Last Admin: 04/08/18 02:30 Dose: 40 mg Ondansetron HCl (Zofran) 4 mg IV Q4H PRN PRN Reason: Nausea/Vomiting Oxycodone HCl (Oxycodone) 5 mg PO Q4H PRN PRN Reason: Pain (moderate 4-6) Polyethylene Glycol (Miralax) 17 gm PO DAILY PRN PRN Reason: Constipation Senna/Docusate Sodium (Senna Plus) 1 tab PO BID PRN PRN Reason: Constipation Sodium Chloride (Saline Flush) 10 ml FLUSH ASDIRECTED PRN PRN Reason: Keep Vein Open Discontinued Medications Albuterol (Proventil Neb Soln) 2.5 mg NEB ONETIME ONE Stop: 04/07/18 13:13 Last Admin: 04/07/18 13:31 Dose: 2.5 mg Sodium Chloride (Normal Saline) 1,000 mls @ 999 mls/hr IV ASDIRECTED [facility] Last Admin: 04/07/18 13:26 Dose: 999 mls/hr Levofloxacin/Dextrose 500 mg/ (Premix) 100 mls @ 100 mls/hr IV ONETIME ONE Stop: 04/07/18 14:33 Last Admin: 04/07/18 20:08 Dose: Not Given Aztreonam 1 gm/ Sodium (Chloride) 50 mls @ 100 mls/hr IV ONETIME ONE Stop: 04/07/18 14:04 Last Admin: 04/07/18 20:08 Dose: Not Given Sodium Chloride (Normal Saline) 1,000 mls @ 999 mls/hr IV ASDIRECTED [facility] Last Admin: 04/07/18 14:24 Dose: 999 mls/hr Piperacillin/Tazobactam/ (Dextrose 3.375 gm/ Premix) 50 mls @ 100 mls/hr IV ONETIME ONE Stop: 04/07/18 14:29 Last Admin: 04/07/18 14:15 Dose: 100 mls/hr Lactated Ringer's (Ringers, Lactated) 1,000 mls @ 500 mls/hr IV ASDIRECTED [facility] Stop: 04/07/18 18:40 Dextrose/Water (Dextrose 5% In Water) Confirm Administered Dose 250 mls @ as directed .ROUTE .STK-MED ONE Stop: 04/07/18 17:09 Last Admin: 04/07/18 17:46 Dose: Not Given Lactated Ringer's (Ringers, Lactated) 500 mls @ 500 mls/hr IV ONETIME ONE Stop: 04/07/18 23:02 Last Admin: 04/07/18 22:05 Dose: 500 mls/hr Pantoprazole Sodium 80 mg/ (Sodium Chloride) 100 mls @ 8 mls/hr IV .[id number] [facility] Sodium Chloride (Normal Saline) Confirm Administered Dose 100 mls @ as directed .ROUTE .STK-MED ONE Stop: 04/07/18 23:00 Last Admin: 04/07/18 23:15 Dose: Not Given Norepinephrine Bitartrate (Levophed) Confirm Administered Dose 4 mg .ROUTE .STK- MED ONE Stop: 04/07/18 17:07 Last Admin: 04/07/18 17:44 Dose: Not Given Pantoprazole Sodium (Protonix Iv) 40 mg IVPUSH ONETIME ONE Stop: 04/07/18 14:13 Last Admin: 04/07/18 14:44 Dose: 40 mg Pantoprazole Sodium (Protonix Iv) 80 mg IVPUSH .BOLUS ONE Stop: 04/07/18 22:33 Last Admin: 04/07/18 22:54 Dose: 80 mg Vancomycin HCl (Vancomycin) 1 gm IV .PHARMACY TO DOSE [facility] Stop: 04/07/18 17:00 Vasopressin (Vasopressin) Confirm Administered Dose 20 units .ROUTE .STK-MED ONE Stop: 04/07/18 22:55 Last Admin: 04/07/18 23:15 Dose: Not Given Vasopressin (Vasopressin) Confirm Administered Dose 80 units .ROUTE .STK-MED ONE Stop: 04/07/18 22:59 Last Admin: 04/07/18 23:15 Dose: Not Given - Exam Quality Assessment: Supplemental Oxygen General: Alert, Oriented HEENT: Pupils Equal Neck: Supple Lungs: Clear to Auscultation, Normal Respiratory Effort Cardiovascular: No Murmurs, Irregular Rhythm GI/Abdominal Exam: Soft, Non-Tender Back Exam: Normal Inspection, Full Range of Motion. No: CVA Tenderness (R), CVA Tenderness (L) Extremities: Normal Inspection, Non-Tender, No Pedal Edema Skin: Warm, Dry, Intact Neurological: No New Focal Deficit Psy/Mental Status: Alert, Normal Affect, Normal Mood - Problem List & Annotations (1) GI bleeding SNOMED Code(s): 16914553 Code(s): K92.2 - GASTROINTESTINAL HEMORRHAGE, UNSPECIFIED Status: Acute Priority: High Current Visit: Yes Qualifiers: GI bleed type/associated pathology: unspecified gastrointestinal hemorrhage type Qualified Code(s): K92.2 - Gastrointestinal hemorrhage, unspecified (2) Sepsis SNOMED Code(s): 20194924 Code(s): A41.9 - SEPSIS, UNSPECIFIED ORGANISM Status: Acute Current Visit : Yes Qualifiers: Sepsis type: sepsis due to unspecified organism Qualified Code(s): A41.9 - Sepsis, unspecified organism (3) COPD (chronic obstructive pulmonary disease) SNOMED Code(s): 31970564 Code(s): J44.9 - CHRONIC OBSTRUCTIVE PULMONARY DISEASE, UNSPECIFIED Status : Acute Priority: Medium Current Visit: Yes Qualifiers: COPD type: unspecified COPD Qualified Code(s): J44.9 - Chronic obstructive pulmonary disease, unspecified (4) NATALI (acute kidney injury) SNOMED Code(s): 98243898 Code(s): N17.9 - ACUTE KIDNEY FAILURE, UNSPECIFIED Status: Acute Priority : High Current Visit: Yes (5) Afib SNOMED Code(s): 23124746 Code(s): I48.91 - UNSPECIFIED ATRIAL FIBRILLATION Status: Acute Priority : Medium Current Visit: Yes Qualifiers: Atrial fibrillation type: chronic Qualified Code(s): I48.2 - Chronic atrial fibrillation - Problem List Review Problem List Initiated/Reviewed/Updated: Yes - My Orders Last 24 Hours: My Active Orders 04/08/18 08:58 Communication Order [RC] ROUTINE Magnesium Sulfate/Water [Magnesium Sulfate 2 GM in Water 50 ML] 2 gm Premix Bag 1 bag IV ONETIME 04/09/18 05:11 CBC WITH AUTO DIFF [HEME] AM COMPREHENSIVE METABOLIC PN,CMP [CHEM] AM MAGNESIUM [CHEM] AM - Plan Plan:: ASSESSMENT AND PLAN SEPSIS-most likely source is pulmonary, feels the blood in his stool is clearing , denies significant abdominal pain or other GI symptoms. No other obvious source of infection identified thus far on evaluation. -Blood cultures pending -IV fluids per sepsis protocol -Norepinephrine IV and vasopressin, will try to wean pressers -CT scan of the chest, abdomen, and pelvis -IV vancomycin, Zosyn, and levofloxacin, pending blood culture results -Hyperglicemia 220 this am will monitor may need to correct depending on steroid does HYPOXIC RESPIRATORY FAILURE-underlying COPD, but is not oxygen dependent at home. Likely secondary to underlying pulmonary infection, although chest x-ray appears to be clear -CT scan of the chest, abd and pelvis show no acute process - Respiratory culture shows +rods and + cocci -Noninvasive positive pressure ventilation now in nc will use BiPAP for comfort , does use CPAP at home at night -Supplemental oxygen as needed maintaining with NC 2 L/min -Nebulized albuterol and duo nebs prn -Solu-Medrol 40 mg IV every 6 hours continue for now ACUTE KIDNEY INJURY-history of underlying chronic kidney disease -Good urine output will D/C the walker cath improved renal Cr now 1.7 from 2.2 -hypomagnesiemia will replace with MgSO4 2g times one ATRIAL FIBRILLATION-rate now normal rand will restat home meds when off Norepinephrine and vasopressin -Cardiac monitoring -Resume rate slowing medication when hypotension has resolved -Continue anticoagulation with Eliquis, although may need to consider holding this if he continues to have some blood in his stool Hgb had dropped to 9.7 this am normchromic anemia, 2 unit of blood on hold HEMATOCHEZIA-at this point seems to be relatively mild bleed -Follow-up hemoglobin in a.m., sooner if bleeding seems to increase -Colonoscopy and EGD when hemodynamically stable and respiratory status improves hx of flex sig only MAINTENANCE ISSUES -DVT prophylaxis; current anticoagulation should provide adequate DVT prophylaxis -GI prophylaxis; on protonix of 80 mg at 10 ml/h -Walker catheter; d/c today 04-08-18 -Nutrition; regular diet -Nicotine dependence; not required CODE STATUS-FULL CODE ADMISSION STATUS-patient will be admitted to inpatient status, expect at least a 2 night hospital stay for evaluation and management of problems as outlined above. At the time of this admission I do not reasonably expected evaluation and management of this problem will require more than a 96 hour hospital stay. DISPOSITION-anticipate discharge to home after the hospital stay. PRIMARY CARE PROVIDER-Dr. Grant
[2018-04-08] MEDS: Apixaban 5 MG Tab PO SCH ×2 (09:38→20:31)
[2018-04-08] MEDS ORDERED: Magnesium Sulfate/Water 2 GM in Premix Bag 1 BAG IV ONE (10:00)
[2018-04-08] MEDS: Pantoprazole 80 MG in Sodium Chloride 0.9% 100 ML IV SCH ×2 (10:30→19:46)
[2018-04-09] MEDS: Lactated Ringers 1,000 ML IV SCH ×3 (00:43→16:32)
[2018-04-09] MEDS: Piperacillin/Tazobactam/Dext 3.375 GM in Premix Bag 1 BAG IV SCH ×3 (02:23→15:11)
[2018-04-09] MEDS: methylPREDNISolone Sodium Succinate 40 MG/1 ML SDV IVPUSH SCH ×4 (02:55→21:00)
[2018-04-09] MEDS: Pantoprazole 80 MG in Sodium Chloride 0.9% 100 ML IV SCH (05:47)
[2018-04-09] MEDS: Norepinephrine 4 MG in Dextrose 5% in Water 246 ML IV SCH ×4 (07:18→18:59)
[2018-04-09] MEDS: Albuterol/Ipratropium 3.0-0.5 MG/3 ML Neb Soln NEB SCH ×3 (07:21→14:35)
--- NOTE | 2018-04-09 08:55 | CR ---
CHEST: Portable CLINICAL HISTORY:Hypoxia, sepsis COMPARISON:None FINDINGS: Lungs are hyperaerated. Heart and pulmonary vascularity appear normal. No infiltrate effus ion or pneumothorax is seen. IMPRESSION: Emphysematous changes No acute cardiopulmonary process
[2018-04-09] MEDS: Apixaban 5 MG Tab PO SCH (09:35)
--- NOTE | 2018-04-09 09:37 | PCM.PN ---
- General Info Date of Service: 04/09/18 Functional Status: Reports: Pain Controlled, Tolerating Diet - Review of Systems General: Denies: Fever Pulmonary: Reports: Shortness of Breath Systems Review Comment:: No acute events overnight. Hypotension slowly improving with decreasing vasopressor requirements though still requires some norepinephrine to maintain systolic blood pressure. Still has some shortness of breath. No reports of abdominal pain. Still having some hematochezia. He has not had any fevers. Cultures have been negative. Kidney function steadily improving. - Patient Data Vitals - Most Recent: Last Vital Signs Temp 35.8 C 04/09/18 01:00 Pulse 112 H 04/09/18 09:30 Resp 24 H 04/09/18 08:06 BP 100/54 L 04/09/18 09:30 Pulse Ox 93 L 04/09/18 07:37 Weight - Most Recent: 100.335 kg I&O - Last 24 Hours: Intake & Output 04/08/18 04/09/18 04/09/18 22:59 06:59 14:59 Intake Total 2601 3574 50 Output Total 1125 1200 Balance 1476 2374 50 Lab Results Last 24 Hours: Laboratory Results - last 24 hr 04/09/18 04/09/18 04/09/18 Range/Units 05:35 05:35 05:35 WBC 23.1 H (4.5-11.0) K/uL RBC 2.69 L (4.30-5.90) M/uL Hgb 8.6 L (12.0-15.0) g/dL Hct 25.0 L (40.0-54.0) % MCV 93 (80-98) fL MCH 32 H (27-31) pg MCHC 34 (32-36) % Plt Count 162 (150-400) K/uL Neut % (Auto) 90 H (36-66) % Lymph % (Auto) 4 L (24-44) % Orange % (Auto) 5 (2-6) % Eos % (Auto) 0 L (2-4) % Baso % (Auto) 0 (0-1) % Sodium 144 (140-148) mmol/L Potassium 4.1 (3.6-5.2) mmol/L Chloride 110 H (100-108) mmol/L Carbon Dioxide 28 (21-32) mmol/L Anion Gap 10.1 (5.0-14.0) mmol/L BUN 42 H D (7-18) mg/dL Creatinine 1.2 (0.8-1.3) mg/dL Est Cr Clr Drug Dosing 45.22 mL/min Estimated GFR (MDRD) 59 L (>60) Glucose 137 H (74-106) mg/dL Lactic Acid 2.1 H (0.4-2.0) mmol/L Calcium 8.4 L (8.5-10.1) mg/dL Magnesium 2.2 (1.8-2.4) mg/dL Total Bilirubin 0.5 (0.2-1.0) mg/dL AST 22 (15-37) U/L ALT 31 (12-78) U/L Alkaline Phosphatase 40 L (46-116) U/L Total Protein 5.1 L (6.4-8.2) g/dL Albumin 2.4 L (3.4-5.0) g/dL Globulin 2.7 (2.3-3.5) g/dL Albumin/Globulin Ratio 0.9 L (1.2-2.2) Freedom Results Last 24 Hours: Microbiology 04/07/18 13:00 Gram Stain - Final Sputum - Expectorated Respiratory Culture - Final ORAL CONTAMINATION 2 DAY 04/07/18 12:37 Aerobic Blood Culture - Preliminary Blood - Arm, Left NO GROWTH AFTER 1 DAY Anaerobic Blood Culture - Preliminary NO GROWTH AFTER 1 DAY 04/07/18 12:42 Aerobic Blood Culture - Preliminary Blood - Venous - Iv Start NO GROWTH AFTER 1 DAY Anaerobic Blood Culture - Preliminary NO GROWTH AFTER 1 DAY Med Orders - Current: Current Medications Acetaminophen (Tylenol) 650 mg PO Q4H PRN PRN Reason: Pain (Mild 1-3)/fever Albuterol (Proventil Neb Soln) 2.5 mg NEB Q4H PRN PRN Reason: Shortness Of Breath/wheezing Last Admin: 04/08/18 03:47 Dose: 2.5 mg Albuterol/Ipratropium (Duoneb 3.0-0.5 Mg/3 Ml) 3 ml NEB QIDRT [facility] Last Admin: 04/09/18 07:21 Dose: 3 ml Carvedilol (Coreg) 6.25 mg PO BID [facility] Lactated Ringer's (Ringers, Lactated) 1,000 mls @ 125 mls/hr IV ASDIRECTED [facility] Last Admin: 04/09/18 08:33 Dose: 125 mls/hr Levofloxacin/Dextrose 750 mg/ (Premix) 150 mls @ 100 mls/hr IV Q48H [facility] Last Admin: 04/07/18 15:34 Dose: 100 mls/hr Piperacillin/Tazobactam/ (Dextrose 3.375 gm/ Premix) 50 mls @ 100 mls/hr IV Q6H [facility] Last Admin: 04/09/18 07:53 Dose: 100 mls/hr Norepinephrine Bitartrate 4 mg (/ Dextrose/Water) 250 mls @ 7.5 mls/hr IV TITRATE [facility]; Protocol Last Admin: 04/09/18 07:18 Dose: 5 mcg/min, 18.75 mls/hr Magnesium Hydroxide (Milk Of Magnesia) 30 ml PO Q12H PRN PRN Reason: Constipation Methylprednisolone Sodium Succinate (Solu-Medrol) 40 mg IVPUSH Q6H [facility] Last Admin: 04/09/18 09:25 Dose: 40 mg Ondansetron HCl (Zofran) 4 mg IV Q4H PRN PRN Reason: Nausea/Vomiting Oxycodone HCl (Oxycodone) 5 mg PO Q4H PRN PRN Reason: Pain (moderate 4-6) Polyethylene Glycol (Miralax) 17 gm PO DAILY PRN PRN Reason: Constipation Senna/Docusate Sodium (Senna Plus) 1 tab PO BID PRN PRN Reason: Constipation Sodium Chloride (Saline Flush) 10 ml FLUSH ASDIRECTED PRN PRN Reason: Keep Vein Open Discontinued Medications Albuterol (Proventil Neb Soln) 2.5 mg NEB ONETIME ONE Stop: 04/07/18 13:13 Last Admin: 04/07/18 13:31 Dose: 2.5 mg Apixaban (Eliquis) 5 mg PO BID [facility] Last Admin: 04/08/18 20:31 Dose: 5 mg Sodium Chloride (Normal Saline) 1,000 mls @ 999 mls/hr IV ASDIRECTED [facility] Last Admin: 04/07/18 13:26 Dose: 999 mls/hr Levofloxacin/Dextrose 500 mg/ (Premix) 100 mls @ 100 mls/hr IV ONETIME ONE Stop: 04/07/18 14:33 Last Admin: 04/07/18 20:08 Dose: Not Given Aztreonam 1 gm/ Sodium (Chloride) 50 mls @ 100 mls/hr IV ONETIME ONE Stop: 04/07/18 14:04 Last Admin: 04/07/18 20:08 Dose: Not Given Sodium Chloride (Normal Saline) 1,000 mls @ 999 mls/hr IV ASDIRECTED [facility] Last Admin: 04/07/18 14:24 Dose: 999 mls/hr Piperacillin/Tazobactam/ (Dextrose 3.375 gm/ Premix) 50 mls @ 100 mls/hr IV ONETIME ONE Stop: 04/07/18 14:29 Last Admin: 04/07/18 14:15 Dose: 100 mls/hr Lactated Ringer's (Ringers, Lactated) 1,000 mls @ 500 mls/hr IV ASDIRECTED [facility] Stop: 04/07/18 18:40 Vancomycin HCl 1.5 gm/ Sodium (Chloride) 250 mls @ 167 mls/hr IV Q24H [facility] Last Admin: 04/08/18 16:07 Dose: 167 mls/hr Dextrose/Water (Dextrose 5% In Water) Confirm Administered Dose 250 mls @ as directed .ROUTE .STK-MED ONE Stop: 04/07/18 17:09 Last Admin: 04/07/18 17:46 Dose: Not Given Lactated Ringer's (Ringers, Lactated) 500 mls @ 500 mls/hr IV ONETIME ONE Stop: 04/07/18 23:02 Last Admin: 04/07/18 22:05 Dose: 500 mls/hr Pantoprazole Sodium 80 mg/ (Sodium Chloride) 100 mls @ 8 mls/hr IV .[id number] [facility] Last Admin: 04/09/18 07:29 Dose: Not Given Vasopressin 100 units/ Sodium (Chloride) 100 mls @ 6 mls/hr IV TITRATE [facility]; Protocol Last Titration: 04/08/18 08:42 Dose: 0.05 units/min, 3 mls/hr Pantoprazole Sodium 80 mg/ (Sodium Chloride) 100 mls @ 10 mls/hr IV Q10H [facility] Last Admin: 04/07/18 23:19 Dose: 8 mls/hr Sodium Chloride (Normal Saline) Confirm Administered Dose 100 mls @ as directed .ROUTE .STK-MED ONE Stop: 04/07/18 23:00 Last Admin: 04/07/18 23:15 Dose: Not Given Magnesium Sulfate 2 gm/ Premix 50 mls @ 25 mls/hr IV ONETIME ONE Stop: 04/08/18 11:59 Last Admin: 04/08/18 09:42 Dose: 25 mls/hr Pantoprazole Sodium 80 mg/ (Sodium Chloride) 100 mls @ 10 mls/hr IV Q10H [facility] Last Admin: 04/09/18 05:47 Dose: 10 mls/hr Norepinephrine Bitartrate (Levophed) Confirm Administered Dose 4 mg .ROUTE .STK- MED ONE Stop: 04/07/18 17:07 Last Admin: 04/07/18 17:44 Dose: Not Given Pantoprazole Sodium (Protonix Iv) 40 mg IVPUSH ONETIME ONE Stop: 04/07/18 14:13 Last Admin: 04/07/18 14:44 Dose: 40 mg Pantoprazole Sodium (Protonix Iv) 80 mg IVPUSH .BOLUS ONE Stop: 04/07/18 22:33 Last Admin: 04/07/18 22:54 Dose: 80 mg Vancomycin HCl (Vancomycin) 1 gm IV .PHARMACY TO DOSE [facility] Stop: 04/07/18 17:00 Vasopressin (Vasopressin) Confirm Administered Dose 20 units .ROUTE .STK-MED ONE Stop: 04/07/18 22:55 Last Admin: 04/07/18 23:15 Dose: Not Given Vasopressin (Vasopressin) Confirm Administered Dose 80 units .ROUTE .STK-MED ONE Stop: 04/07/18 22:59 Last Admin: 04/07/18 23:15 Dose: Not Given - Exam Quality Assessment: Supplemental Oxygen General: Alert, Oriented, Cooperative, No Acute Distress Neck: Supple Lungs: Normal Respiratory Effort, Rhonchi (mild diffuse). No: Wheezing Cardiovascular: Irregular Rhythm, Tachycardia GI/Abdominal Exam: Normal Bowel Sounds, Soft, Non-Tender, No Distention Extremities: Pedal Edema (mild). No: Increased Warmth Skin: Warm, Dry Psy/Mental Status: Alert, Normal Affect - Problem List Review Problem List Initiated/Reviewed/Updated: Yes - My Orders Last 24 Hours: My Active Orders 04/09/18 09:30 Carvedilol [Coreg] 6.25 mg PO BID 04/10/18 05:00 BASIC METABOLIC PANEL,BMP [CHEM] Timed CBC W/O DIFF,HEMOGRAM [HEME] Timed (1) 04/10/18 07:30 Pantoprazole [ProTONIX] 40 mg PO ACBREAKFAST - Plan Plan:: ASSESSMENT AND PLAN Septic shock - most likely source is pulmonary though bacteremia from his gastrointestinal bleeding could be considered. Hypoxic respiratory failure from probable bronchitis is improving as discussed below. Sepsis persists with ongoing vasopressor requirement. Cultures negative so far. -IV fluids per sepsis protocol -Continue norepinephrine, wean as able -Continue levofloxacin and Pip/Tazo -Discontinue vancomycin with no resistant gram-positives identified -Follow-up blood cultures HYPOXIC RESPIRATORY FAILURE - underlying COPD, but is not oxygen dependent at home. Likely secondary to underlying pulmonary infection with bronchitis the most likely culprit. CT scan of the chest was unremarkable. Respiratory culture did not grow specific bacteria. Did require noninvasive ventilation overnight. -Noninvasive positive pressure ventilation now in fl will use BiPAP for comfort , does use CPAP at home at night -Supplemental oxygen as needed maintaining with NC 2 L/min -Nebulized albuterol and duo nebs prn -Solu-Medrol 40 mg IV every 6 hours, transition to prednisone tomorrow ACUTE KIDNEY INJURY - history of underlying chronic kidney disease, stage improvement with sepsis management as above. -Continue gentle fluids and repeat labs in the morning ATRIAL FIBRILLATION - rate has been trending up with more significant elevations with activity. -Cardiac monitoring -Restart partial dose of carvedilol -Hold anticoagulation with dropping hemoglobin, hematochezia and possible need for intervention/additional diagnostic workup HEMATOCHEZIA WITH ACUTE BLOOD LOSS ANEMIA - at this point seems to be relatively mild bleed but he does have ongoing bleeding and slowly decreasing hemoglobin. -Hold anticoagulation -Repeat hemoglobin in the morning -Colonoscopy and EGD when hemodynamically stable and respiratory status improves MAINTENANCE ISSUES -DVT prophylaxis; holding anticoagulation as above, will initiate mechanical prophylaxis -GI prophylaxis; daily proton pump inhibitor -Núñez catheter; removed 04/08 -Nutrition; regular diet -Nicotine dependence; not required DISPOSITION - anticipate discharge to home after the hospital stay. Glenn Grimaldo MD
[2018-04-09] MEDS: Carvedilol 6.25 MG Tab PO SCH (11:58)
[2018-04-09] MEDS: Levofloxacin/Dextrose 5%-Water 750 MG in Premix Bag 1 BAG IV SCH (16:05)
[2018-04-10] MEDS: Lactated Ringers 1,000 ML IV SCH ×2 (00:58→09:15)
[2018-04-10] MEDS: Piperacillin/Tazobactam/Dext 3.375 GM in Premix Bag 1 BAG IV SCH ×5 (02:30→20:36)
[2018-04-10] MEDS: Carvedilol 6.25 MG Tab PO SCH ×2 (03:04→09:57)
[2018-04-10] MEDS: methylPREDNISolone Sodium Succinate 40 MG/1 ML SDV IVPUSH SCH ×2 (03:04→10:04)
[2018-04-10] MEDS: Albuterol/Ipratropium 3.0-0.5 MG/3 ML Neb Soln NEB SCH ×5 (03:04→20:37)
[2018-04-10] MEDS: Pantoprazole 40 MG Tab.CR PO SCH (07:55)
[2018-04-10] MEDS ORDERED: Furosemide 40 MG/4 ML VIAL IVPUSH ONE (09:01)
--- NOTE | 2018-04-10 09:04 | PCM.PN ---
- General Info Date of Service: 04/10/18 Functional Status: Reports: Pain Controlled, Tolerating Diet - Review of Systems General: Denies: Fever Pulmonary: Reports: Shortness of Breath Gastrointestinal: Denies: Hematochezia Systems Review Comment:: There were no acute events overnight. He was down to 2 g of norepinephrine this morning and blood pressures have been stable. Oxygenation improving and he is down to 2 L of supplemental oxygen. No abdominal pain. Minimal lower extremity edema. Minimal cough at this time. Kidney function continues to improve. White blood cell count is up a little bit today. - Patient Data Vitals - Most Recent: Last Vital Signs Temp 36.2 C 04/10/18 08:00 Pulse 114 H 04/10/18 08:00 Resp 24 H 04/10/18 08:00 BP 97/61 04/10/18 08:00 Pulse Ox 92 L 04/10/18 08:00 Weight - Most Recent: 100.335 kg I&O - Last 24 Hours: Intake & Output 04/09/18 04/10/18 04/10/18 22:59 06:59 14:59 Intake Total 3000 1761 Output Total 900 800 Balance 2100 961 Lab Results Last 24 Hours: Laboratory Results - last 24 hr 04/10/18 04/10/18 Range/Units 04:45 04:45 WBC 26.1 H (4.5-11.0) K/uL RBC 2.58 L (4.30-5.90) M/uL Hgb 8.2 L (12.0-15.0) g/dL Hct 24.8 L (40.0-54.0) % MCV 96 (80-98) fL MCH 32 H (27-31) pg MCHC 33 (32-36) % Plt Count 168 (150-400) K/uL Sodium 146 (140-148) mmol/L Potassium 4.1 (3.6-5.2) mmol/L Chloride 111 H (100-108) mmol/L Carbon Dioxide 29 (21-32) mmol/L Anion Gap 10.1 (5.0-14.0) mmol/L BUN 25 H (7-18) mg/dL Creatinine 1.1 (0.8-1.3) mg/dL Est Cr Clr Drug Dosing 49.66 mL/min Estimated GFR (MDRD) > 60 (>60) Glucose 130 H (74-106) mg/dL Calcium 8.6 (8.5-10.1) mg/dL [facility] Results Last 24 Hours: Microbiology 04/07/18 12:37 Aerobic Blood Culture - Preliminary Blood - Arm, Left NO GROWTH AFTER 2 DAYS Anaerobic Blood Culture - Preliminary NO GROWTH AFTER 2 DAYS 04/07/18 12:42 Aerobic Blood Culture - Preliminary Blood - Venous - Iv Start NO GROWTH AFTER 2 DAYS Anaerobic Blood Culture - Preliminary NO GROWTH AFTER 2 DAYS 04/07/18 13:00 Gram Stain - Final Sputum - Expectorated Respiratory Culture - Final ORAL CONTAMINATION 2 DAY Med Orders - Current: Current Medications Acetaminophen (Tylenol) 650 mg PO Q4H PRN PRN Reason: Pain (Mild 1-3)/fever Albuterol (Proventil Neb Soln) 2.5 mg NEB Q4H PRN PRN Reason: Shortness Of Breath/wheezing Last Admin: 04/08/18 03:47 Dose: 2.5 mg Albuterol/Ipratropium (Duoneb 3.0-0.5 Mg/3 Ml) 3 ml NEB QIDRT [facility] Last Admin: 04/10/18 07:10 Dose: 3 ml Carvedilol (Coreg) 12.5 mg PO BID [facility] Furosemide (Lasix) 20 mg IVPUSH NOW ONE Stop: 04/10/18 09:02 Piperacillin/Tazobactam/ (Dextrose 3.375 gm/ Premix) 50 mls @ 100 mls/hr IV Q6H [facility] Last Admin: 04/10/18 08:18 Dose: 100 mls/hr Norepinephrine Bitartrate 4 mg (/ Dextrose/Water) 250 mls @ 7.5 mls/hr IV TITRATE [facility]; Protocol Last Titration: 04/10/18 05:58 Dose: 2 mcg/min, 7.5 mls/hr Levofloxacin/Dextrose 750 mg/ (Premix) 150 mls @ 100 mls/hr IV Q24H [facility] Lactated Ringer's (Ringers, Lactated) 1,000 mls @ 50 mls/hr IV ASDIRECTED [facility] Magnesium Hydroxide (Milk Of Magnesia) 30 ml PO Q12H PRN PRN Reason: Constipation Methylprednisolone Sodium Succinate (Solu-Medrol) 40 mg IVPUSH Q6H [facility] Last Admin: 04/10/18 03:04 Dose: 40 mg Ondansetron HCl (Zofran) 4 mg IV Q4H PRN PRN Reason: Nausea/Vomiting Oxycodone HCl (Oxycodone) 5 mg PO Q4H PRN PRN Reason: Pain (moderate 4-6) Pantoprazole Sodium (Protonix) 40 mg PO ACBREAKFAST [facility] Last Admin: 04/10/18 07:55 Dose: 40 mg Polyethylene Glycol (Miralax) 17 gm PO DAILY PRN PRN Reason: Constipation Senna/Docusate Sodium (Senna Plus) 1 tab PO BID PRN PRN Reason: Constipation Sodium Chloride (Saline Flush) 10 ml FLUSH ASDIRECTED PRN PRN Reason: Keep Vein Open Discontinued Medications Albuterol (Proventil Neb Soln) 2.5 mg NEB ONETIME ONE Stop: 04/07/18 13:13 Last Admin: 04/07/18 13:31 Dose: 2.5 mg Apixaban (Eliquis) 5 mg PO BID [facility] Last Admin: 04/09/18 09:35 Dose: Not Given Carvedilol (Coreg) 6.25 mg PO BID [facility] Last Admin: 04/10/18 03:04 Dose: 6.25 mg Sodium Chloride (Normal Saline) 1,000 mls @ 999 mls/hr IV ASDIRECTED [facility] Last Admin: 04/07/18 13:26 Dose: 999 mls/hr Levofloxacin/Dextrose 500 mg/ (Premix) 100 mls @ 100 mls/hr IV ONETIME ONE Stop: 04/07/18 14:33 Last Admin: 04/07/18 20:08 Dose: Not Given Aztreonam 1 gm/ Sodium (Chloride) 50 mls @ 100 mls/hr IV ONETIME ONE Stop: 04/07/18 14:04 Last Admin: 04/07/18 20:08 Dose: Not Given Sodium Chloride (Normal Saline) 1,000 mls @ 999 mls/hr IV ASDIRECTED [facility] Last Admin: 04/07/18 14:24 Dose: 999 mls/hr Piperacillin/Tazobactam/ (Dextrose 3.375 gm/ Premix) 50 mls @ 100 mls/hr IV ONETIME ONE Stop: 04/07/18 14:29 Last Admin: 04/07/18 14:15 Dose: 100 mls/hr Lactated Ringer's (Ringers, Lactated) 1,000 mls @ 500 mls/hr IV ASDIRECTED [facility] Stop: 04/07/18 18:40 Lactated Ringer's (Ringers, Lactated) 1,000 mls @ 125 mls/hr IV ASDIRECTED [facility] Last Admin: 04/10/18 00:58 Dose: 125 mls/hr Levofloxacin/Dextrose 750 mg/ (Premix) 150 mls @ 100 mls/hr IV Q48H [facility] Last Admin: 04/09/18 16:05 Dose: 100 mls/hr Vancomycin HCl 1.5 gm/ Sodium (Chloride) 250 mls @ 167 mls/hr IV Q24H [facility] Last Admin: 04/08/18 16:07 Dose: 167 mls/hr Dextrose/Water (Dextrose 5% In Water) Confirm Administered Dose 250 mls @ as directed .ROUTE .STK-MED ONE Stop: 04/07/18 17:09 Last Admin: 04/07/18 17:46 Dose: Not Given Lactated Ringer's (Ringers, Lactated) 500 mls @ 500 mls/hr IV ONETIME ONE Stop: 04/07/18 23:02 Last Admin: 04/07/18 22:05 Dose: 500 mls/hr Pantoprazole Sodium 80 mg/ (Sodium Chloride) 100 mls @ 8 mls/hr IV .[id number] [facility] Last Admin: 04/09/18 07:29 Dose: Not Given Vasopressin 100 units/ Sodium (Chloride) 100 mls @ 6 mls/hr IV TITRATE [facility]; Protocol Last Titration: 04/08/18 08:42 Dose: 0.05 units/min, 3 mls/hr Pantoprazole Sodium 80 mg/ (Sodium Chloride) 100 mls @ 10 mls/hr IV Q10H [facility] Last Admin: 04/07/18 23:19 Dose: 8 mls/hr Sodium Chloride (Normal Saline) Confirm Administered Dose 100 mls @ as directed .ROUTE .STK-MED ONE Stop: 04/07/18 23:00 Last Admin: 04/07/18 23:15 Dose: Not Given Magnesium Sulfate 2 gm/ Premix 50 mls @ 25 mls/hr IV ONETIME ONE Stop: 04/08/18 11:59 Last Admin: 04/08/18 09:42 Dose: 25 mls/hr Pantoprazole Sodium 80 mg/ (Sodium Chloride) 100 mls @ 10 mls/hr IV Q10H [facility] Last Admin: 04/09/18 05:47 Dose: 10 mls/hr Norepinephrine Bitartrate (Levophed) Confirm Administered Dose 4 mg .ROUTE .STK- MED ONE Stop: 04/07/18 17:07 Last Admin: 04/07/18 17:44 Dose: Not Given Pantoprazole Sodium (Protonix Iv) 40 mg IVPUSH ONETIME ONE Stop: 04/07/18 14:13 Last Admin: 04/07/18 14:44 Dose: 40 mg Pantoprazole Sodium (Protonix Iv) 80 mg IVPUSH .BOLUS ONE Stop: 04/07/18 22:33 Last Admin: 04/07/18 22:54 Dose: 80 mg Vancomycin HCl (Vancomycin) 1 gm IV .PHARMACY TO DOSE [facility] Stop: 04/07/18 17:00 Vasopressin (Vasopressin) Confirm Administered Dose 20 units .ROUTE .STK-MED ONE Stop: 04/07/18 22:55 Last Admin: 04/07/18 23:15 Dose: Not Given Vasopressin (Vasopressin) Confirm Administered Dose 80 units .ROUTE .STK-MED ONE Stop: 04/07/18 22:59 Last Admin: 04/07/18 23:15 Dose: Not Given - Exam Quality Assessment: Supplemental Oxygen General: Alert, Oriented, Cooperative, No Acute Distress Neck: Supple Lungs: Clear to Auscultation, Normal Respiratory Effort, Rhonchi (mild upper resp rhonchi) Cardiovascular: Irregular Rhythm, Tachycardia GI/Abdominal Exam: Normal Bowel Sounds, Soft, Non-Tender, No Distention Extremities: Pedal Edema (mild ankle edema). No: Increased Warmth Psy/Mental Status: Alert, Normal Affect - Problem List Review Problem List Initiated/Reviewed/Updated: Yes - My Orders Last 24 Hours: My Active Orders 04/10/18 07:30 Pantoprazole [ProTONIX] 40 mg PO ACBREAKFAST 04/10/18 09:00 Lactated Ringers [Ringers, Lactated] 1,000 ml IV ASDIRECTED 04/10/18 09:01 Furosemide [Lasix] 20 mg IVPUSH NOW ONE 04/10/18 21:00 Carvedilol [Coreg] 12.5 mg PO BID 04/10/18 Lunch Clear Liquid Diet [DIET] 04/11/18 05:00 BASIC METABOLIC PANEL,BMP [CHEM] Timed CBC W/O DIFF,HEMOGRAM [HEME] Timed (1) - Plan Plan:: ASSESSMENT AND PLAN Septic shock - most likely source is pulmonary though bacteremia from his gastrointestinal bleeding could be considered. White blood cell count up slightly but otherwise clinically doing better. Vasopressor support decreasing and should be able to wean him off today. He is volume positive from volume resuscitation and I will start diuresis today to hopefully avoid pulmonary edema as he continues to improve. -Furosemide 20 mg 1 -Continue norepinephrine, wean as able -Continue levofloxacin and Pip/Tazo -Follow-up blood cultures HYPOXIC RESPIRATORY FAILURE - underlying COPD, but is not oxygen dependent at home. Likely secondary to underlying pulmonary infection with bronchitis the most likely culprit. Ongoing improvement but still requiring supplemental oxygen. -Supplemental oxygen as needed maintaining with NC 2 L/min -Nebulized albuterol and duo nebs prn -Transition steroids to prednisone -Antibiotics as above ACUTE KIDNEY INJURY - history of underlying chronic kidney disease, kidney function continues to improve with management as above. -repeat labs in the morning ATRIAL FIBRILLATION - rate control has been better with restarting partial dose of carvedilol. -Cardiac monitoring -Increased dose of carvedilol tonight -Hold anticoagulation with dropping hemoglobin, hematochezia and possible need for intervention/additional diagnostic workup HEMATOCHEZIA WITH ACUTE BLOOD LOSS ANEMIA - at this point seems to be relatively mild bleed but he does have ongoing bleeding and slowly decreasing hemoglobin. -Hold anticoagulation -Repeat hemoglobin in the morning -Colonoscopy and EGD tomorrow, bowel prep this afternoon MAINTENANCE ISSUES -DVT prophylaxis; holding anticoagulation as above, will initiate mechanical prophylaxis -GI prophylaxis; daily proton pump inhibitor -Núñez catheter; removed 04/08 -Nutrition; regular diet -Nicotine dependence; not required DISPOSITION - anticipate discharge to home after the hospital stay. Glenn Grimaldo MD
[2018-04-10] MEDS ORDERED: Furosemide 20 MG/2 ML VIAL IVPUSH ONE ×2 (09:15→18:45)
[2018-04-10] MEDS: predniSONE 20 MG Tab PO SCH (09:56)
[2018-04-10] MEDS ORDERED: Bisacodyl 5 MG Tab PO ONE (13:25)
[2018-04-10] MEDS ORDERED: Polyethylene Glycol 3350 Powder 238 GM Bot PO ONE (13:25)
[2018-04-10] MEDS ORDERED: Levofloxacin/Dextrose 5%-Water 750 MG in Premix Bag 1 BAG IV SCH (16:00)
[2018-04-10] MEDS: Carvedilol 12.5 MG Tab PO SCH (20:37)
[2018-04-11] MEDS: Piperacillin/Tazobactam/Dext 3.375 GM in Premix Bag 1 BAG IV SCH ×4 (01:38→20:10)
[2018-04-11] MEDS: Albuterol/Ipratropium 3.0-0.5 MG/3 ML Neb Soln NEB SCH ×4 (07:15→20:10)
[2018-04-11] MEDS: Pantoprazole 40 MG Tab.CR PO SCH ×2 (08:40→15:28)
[2018-04-11] MEDS: predniSONE 20 MG Tab PO SCH ×2 (08:41→16:46)
[2018-04-11] MEDS: Lactated Ringers 1,000 ML IV SCH (08:44)
--- NOTE | 2018-04-11 08:46 | PCM.PN ---
- General Info Date of Service: 04/11/18 Functional Status: Reports: Pain Controlled, Tolerating Diet - Review of Systems General: Reports: Weakness. Denies: Fever Pulmonary: Reports: Shortness of Breath Systems Review Comment:: Yesterday evening the patient had increasing heart rate with rates up to 140. He was a little more short of breath at that time. He did receive a dose of furosemide with improvement in his heart rate after diuresis yesterday evening. There were no acute events overnight after diuresis. This morning he feels fairly well. He is still requiring supplemental oxygen. Mild shortness of breath but not much in the way of cough. No hematochezia overnight. Hemoglobin level stable. - Patient Data Vitals - Most Recent: Last Vital Signs Temp 36.2 C 04/11/18 04:00 Pulse 93 04/11/18 07:16 Resp 20 04/11/18 06:00 BP 110/52 L 04/11/18 06:00 Pulse Ox 92 L 04/11/18 08:05 Weight - Most Recent: 100.335 kg I&O - Last 24 Hours: Intake & Output 04/10/18 04/11/18 04/11/18 22:59 06:59 14:59 Intake Total 996 672 Balance 996 672 Lab Results Last 24 Hours: Laboratory Results - last 24 hr 04/07/18 04/11/18 04/11/18 Range/Units 12:42 04:41 04:41 WBC 24.9 H (4.5-11.0) K/uL RBC 2.64 L (4.30-5.90) M/uL Hgb 8.6 L (12.0-15.0) g/dL Hct 25.7 L (40.0-54.0) % MCV 97 (80-98) fL MCH 33 H (27-31) pg MCHC 34 (32-36) % Plt Count 153 (150-400) K/uL Sodium 144 (140-148) mmol/L Potassium 3.8 (3.6-5.2) mmol/L Chloride 105 (100-108) mmol/L Carbon Dioxide 33 H (21-32) mmol/L Anion Gap 9.8 (5.0-14.0) mmol/L BUN 20 H (7-18) mg/dL Creatinine 1.1 (0.8-1.3) mg/dL Est Cr Clr Drug Dosing 49.66 mL/min Estimated GFR (MDRD) > 60 (>60) Glucose 100 (74-106) mg/dL Calcium 8.1 L (8.5-10.1) mg/dL Crossmatch See Detail [facility] Results Last 24 Hours: Microbiology 04/07/18 12:37 Aerobic Blood Culture - Preliminary Blood - Arm, Left NO GROWTH AFTER 3 DAYS Anaerobic Blood Culture - Preliminary NO GROWTH AFTER 3 DAYS 04/07/18 12:42 Aerobic Blood Culture - Preliminary Blood - Venous - Iv Start NO GROWTH AFTER 3 DAYS Anaerobic Blood Culture - Preliminary NO GROWTH AFTER 3 DAYS Med Orders - Current: Current Medications Acetaminophen (Tylenol) 650 mg PO Q4H PRN PRN Reason: Pain (Mild 1-3)/fever Albuterol (Proventil Neb Soln) 2.5 mg NEB Q4H PRN PRN Reason: Shortness Of Breath/wheezing Last Admin: 04/08/18 03:47 Dose: 2.5 mg Albuterol/Ipratropium (Duoneb 3.0-0.5 Mg/3 Ml) 3 ml NEB QIDRT [facility] Last Admin: 04/11/18 07:15 Dose: 3 ml Carvedilol (Coreg) 12.5 mg PO BID [facility] Last Admin: 04/10/18 20:37 Dose: 12.5 mg Piperacillin/Tazobactam/ (Dextrose 3.375 gm/ Premix) 50 mls @ 100 mls/hr IV Q6H [facility] Last Admin: 04/11/18 08:41 Dose: 100 mls/hr Magnesium Hydroxide (Milk Of Magnesia) 30 ml PO Q12H PRN PRN Reason: Constipation Ondansetron HCl (Zofran) 4 mg IV Q4H PRN PRN Reason: Nausea/Vomiting Oxycodone HCl (Oxycodone) 5 mg PO Q4H PRN PRN Reason: Pain (moderate 4-6) Pantoprazole Sodium (Protonix) 40 mg PO ACBREAKFAST [facility] Last Admin: 04/11/18 08:40 Dose: Not Given Polyethylene Glycol (Miralax) 17 gm PO DAILY PRN PRN Reason: Constipation Senna/Docusate Sodium (Senna Plus) 1 tab PO BID PRN PRN Reason: Constipation Sodium Chloride (Saline Flush) 10 ml FLUSH ASDIRECTED PRN PRN Reason: Keep Vein Open Discontinued Medications Albuterol (Proventil Neb Soln) 2.5 mg NEB ONETIME ONE Stop: 04/07/18 13:13 Last Admin: 04/07/18 13:31 Dose: 2.5 mg Apixaban (Eliquis) 5 mg PO BID [facility] Last Admin: 04/09/18 09:35 Dose: Not Given Bisacodyl (Dulcolax) 10 mg PO ONETIME ONE Stop: 04/10/18 13:26 Last Admin: 04/10/18 14:30 Dose: 10 mg Carvedilol (Coreg) 6.25 mg PO BID [facility] Last Admin: 04/10/18 09:57 Dose: 6.25 mg Furosemide (Lasix) 20 mg IVPUSH NOW ONE Stop: 04/10/18 09:16 Last Admin: 04/10/18 09:56 Dose: 20 mg Furosemide (Lasix) 20 mg IVPUSH ONETIME ONE Stop: 04/10/18 18:46 Last Admin: 04/10/18 18:54 Dose: 20 mg Sodium Chloride (Normal Saline) 1,000 mls @ 999 mls/hr IV ASDIRECTED [facility] Last Admin: 04/07/18 13:26 Dose: 999 mls/hr Levofloxacin/Dextrose 500 mg/ (Premix) 100 mls @ 100 mls/hr IV ONETIME ONE Stop: 04/07/18 14:33 Last Admin: 04/07/18 20:08 Dose: Not Given Aztreonam 1 gm/ Sodium (Chloride) 50 mls @ 100 mls/hr IV ONETIME ONE Stop: 04/07/18 14:04 Last Admin: 04/07/18 20:08 Dose: Not Given Sodium Chloride (Normal Saline) 1,000 mls @ 999 mls/hr IV ASDIRECTED [facility] Last Admin: 04/07/18 14:24 Dose: 999 mls/hr Piperacillin/Tazobactam/ (Dextrose 3.375 gm/ Premix) 50 mls @ 100 mls/hr IV ONETIME ONE Stop: 04/07/18 14:29 Last Admin: 04/07/18 14:15 Dose: 100 mls/hr Lactated Ringer's (Ringers, Lactated) 1,000 mls @ 500 mls/hr IV ASDIRECTED [facility] Stop: 04/07/18 18:40 Lactated Ringer's (Ringers, Lactated) 1,000 mls @ 125 mls/hr IV ASDIRECTED [facility] Last Admin: 04/10/18 00:58 Dose: 125 mls/hr Levofloxacin/Dextrose 750 mg/ (Premix) 150 mls @ 100 mls/hr IV Q48H [facility] Last Admin: 04/09/18 16:05 Dose: 100 mls/hr Vancomycin HCl 1.5 gm/ Sodium (Chloride) 250 mls @ 167 mls/hr IV Q24H [facility] Last Admin: 04/08/18 16:07 Dose: 167 mls/hr Norepinephrine Bitartrate 4 mg (/ Dextrose/Water) 250 mls @ 7.5 mls/hr IV TITRATE [facility]; Protocol Last Titration: 04/10/18 09:05 Dose: 0 mcg/min, 0 mls/hr Dextrose/Water (Dextrose 5% In Water) Confirm Administered Dose 250 mls @ as directed .ROUTE .STBooRah-MED ONE Stop: 04/07/18 17:09 Last Admin: 04/07/18 17:46 Dose: Not Given Lactated Ringer's (Ringers, Lactated) 500 mls @ 500 mls/hr IV ONETIME ONE Stop: 04/07/18 23:02 Last Admin: 04/07/18 22:05 Dose: 500 mls/hr Pantoprazole Sodium 80 mg/ (Sodium Chloride) 100 mls @ 8 mls/hr IV .[id number] [facility] Last Admin: 04/09/18 07:29 Dose: Not Given Vasopressin 100 units/ Sodium (Chloride) 100 mls @ 6 mls/hr IV TITRATE [facility]; Protocol Last Titration: 04/08/18 08:42 Dose: 0.05 units/min, 3 mls/hr Pantoprazole Sodium 80 mg/ (Sodium Chloride) 100 mls @ 10 mls/hr IV Q10H [facility] Last Admin: 04/07/18 23:19 Dose: 8 mls/hr Sodium Chloride (Normal Saline) Confirm Administered Dose 100 mls @ as directed .ROUTE .STK-MED ONE Stop: 04/07/18 23:00 Last Admin: 04/07/18 23:15 Dose: Not Given Magnesium Sulfate 2 gm/ Premix 50 mls @ 25 mls/hr IV ONETIME ONE Stop: 04/08/18 11:59 Last Admin: 04/08/18 09:42 Dose: 25 mls/hr Pantoprazole Sodium 80 mg/ (Sodium Chloride) 100 mls @ 10 mls/hr IV Q10H [facility] Last Admin: 04/09/18 05:47 Dose: 10 mls/hr Levofloxacin/Dextrose 750 mg/ (Premix) 150 mls @ 100 mls/hr IV Q24H [facility] Last Admin: 04/10/18 15:09 Dose: 100 mls/hr Lactated Ringer's (Ringers, Lactated) 1,000 mls @ 50 mls/hr IV ASDIRECTED [facility] Last Admin: 04/10/18 09:15 Dose: 50 mls/hr Methylprednisolone Sodium Succinate (Solu-Medrol) 40 mg IVPUSH Q6H [facility] Last Admin: 04/10/18 10:04 Dose: Not Given Norepinephrine Bitartrate (Levophed) Confirm Administered Dose 4 mg .ROUTE .STK- MED ONE Stop: 04/07/18 17:07 Last Admin: 04/07/18 17:44 Dose: Not Given Pantoprazole Sodium (Protonix Iv) 40 mg IVPUSH ONETIME ONE Stop: 04/07/18 14:13 Last Admin: 04/07/18 14:44 Dose: 40 mg Pantoprazole Sodium (Protonix Iv) 80 mg IVPUSH .BOLUS ONE Stop: 04/07/18 22:33 Last Admin: 04/07/18 22:54 Dose: 80 mg Polyethylene Glycol (Miralax) 238 gm PO ONETIME ONE Stop: 04/10/18 13:26 Last Admin: 04/10/18 14:30 Dose: 238 gram Prednisone (Prednisone) 40 mg PO WITHBREAKFAST [facility] Last Admin: 04/11/18 08:41 Dose: Not Given Vancomycin HCl (Vancomycin) 1 gm IV .PHARMACY TO DOSE [facility] Stop: 04/07/18 17:00 Vasopressin (Vasopressin) Confirm Administered Dose 20 units .ROUTE .STK-MED ONE Stop: 04/07/18 22:55 Last Admin: 04/07/18 23:15 Dose: Not Given Vasopressin (Vasopressin) Confirm Administered Dose 80 units .ROUTE .STK-MED ONE Stop: 04/07/18 22:59 Last Admin: 04/07/18 23:15 Dose: Not Given - Exam Quality Assessment: Supplemental Oxygen General: Alert, Oriented, Cooperative, No Acute Distress Neck: Supple Lungs: Normal Respiratory Effort, Rhonchi (mild right lower lung), Wheezing ( mild exp in upper lungs) Cardiovascular: Regular Rate, Irregular Rhythm GI/Abdominal Exam: Soft, No Distention Extremities: Pedal Edema. No: Increased Warmth Skin: Warm, Dry Psy/Mental Status: Alert, Normal Affect - Problem List Review Problem List Initiated/Reviewed/Updated: Yes - My Orders Last 24 Hours: My Active Orders 04/10/18 21:00 Carvedilol [Coreg] 12.5 mg PO BID 04/10/18 Lunch Clear Liquid Diet [DIET] 04/11/18 08:40 Transfer Patient (Change bed) [ADT] Routine 04/11/18 08:43 PT Evaluation and Treatment [CONS] Routine Furosemide [Lasix] 20 mg IVPUSH ONETIME ONE 04/11/18 16:00 Levofloxacin [Levaquin] 250 mg PO Q24H Levofloxacin [Levaquin] 500 mg PO Q24H 04/12/18 05:00 BASIC METABOLIC PANEL,BMP [CHEM] Timed CBC W/O DIFF,HEMOGRAM [HEME] Timed (1) 04/12/18 08:00 predniSONE 20 mg PO WITHBREAKFAST - Plan Plan:: ASSESSMENT AND PLAN Septic shock - most likely source is pulmonary though bacteremia from his gastrointestinal bleeding could be considered. White blood cell count a little better today. He is off vasopressors at this time. Mild volume overload at this point but responded well to diuresis. Cultures have been negative. -Furosemide 20 mg 1 and reassess -Continue levofloxacin and Pip/Tazo -Follow-up blood cultures HYPOXIC RESPIRATORY FAILURE - underlying COPD, but is not oxygen dependent at home. Likely secondary to underlying pulmonary infection with bronchitis the most likely culprit. slow improvement but still requiring supplemental oxygen -Supplemental oxygen as needed maintaining with NC 2 L/min -Nebulized albuterol and duo nebs prn -Continue prednisone -Antibiotics as above ACUTE KIDNEY INJURY - history of underlying chronic kidney disease, kidney function back to normal. -repeat labs in the morning ATRIAL FIBRILLATION - rate control acceptable other than the short episode last night. -Cardiac monitoring -Continue carvedilol 12.5 mg, anticipate returning to normal doses blood pressure improves -Hold anticoagulation with dropping hemoglobin, hematochezia and additional diagnostic workup HEMATOCHEZIA WITH ACUTE BLOOD LOSS ANEMIA - at this point seems to be relatively mild bleed but he does have ongoing bleeding and slowly decreasing hemoglobin. -Hold anticoagulation -Repeat hemoglobin in the morning -Colonoscopy and EGD today MAINTENANCE ISSUES -DVT prophylaxis; holding anticoagulation as above, will initiate mechanical prophylaxis -GI prophylaxis; daily proton pump inhibitor -Núñez catheter; removed 04/08 -Nutrition; regular diet -Nicotine dependence; not required DISPOSITION - anticipate discharge to home after the hospital stay. Glenn Grimaldo MD
[2018-04-11] MEDS ORDERED: Furosemide 20 MG/2 ML VIAL IVPUSH ONE (09:30)
[2018-04-11] MEDS ORDERED: Propofol 200 MG/20 ML SDV ONE (11:16)
[2018-04-11] MEDS ORDERED: fentaNYL 100 MCG/2 ML SDV ONE (11:17)
[2018-04-11] MEDS ORDERED: Midazolam 1 MG/ML 2 ML SDV ONE (11:17)
[2018-04-11] MEDS: Carvedilol 12.5 MG Tab PO SCH ×2 (12:43→15:28)
[2018-04-11] MEDS ORDERED: Levofloxacin 500 MG Tab PO SCH (16:00)
[2018-04-11] MEDS: Levofloxacin 250 MG Tab PO SCH (16:46)
[2018-04-11] MEDS: Apixaban 5 MG Tab PO SCH (20:10)
[2018-04-11] MEDS ORDERED: Carvedilol 12.5 MG Tab PO ONE (23:30)
[2018-04-12] MEDS: Piperacillin/Tazobactam/Dext 3.375 GM in Premix Bag 1 BAG IV SCH ×2 (02:53→07:53)
[2018-04-12] MEDS: Albuterol/Ipratropium 3.0-0.5 MG/3 ML Neb Soln NEB SCH ×4 (07:26→21:24)
[2018-04-12] MEDS: Carvedilol 12.5 MG Tab PO SCH ×2 (09:01→17:00)
[2018-04-12] MEDS: Pantoprazole 40 MG Tab.CR PO SCH ×2 (09:01→16:02)
[2018-04-12] MEDS: Apixaban 5 MG Tab PO SCH ×2 (09:02→21:25)
[2018-04-12] MEDS: predniSONE 20 MG Tab PO SCH (09:02)
--- NOTE | 2018-04-12 10:39 | PCM.PN ---
- General Info Date of Service: 04/12/18 Functional Status: Reports: Pain Controlled, Tolerating Diet - Review of Systems General: Reports: Weakness Pulmonary: Reports: Shortness of Breath Systems Review Comment:: EGD yesterday revealed a prepyloric ulcer and abnormal tissue in the first part of the duodenum which was biopsied. Colonoscopy revealed a few polyps but no evidence for bleeding. There were no acute events overnight. He is down to 1 L of supplemental oxygen. Minimal cough and minimal shortness of breath. Appetite has been good. He is weak but slowly improving with regard to strength. Atrial fibrillation has improved with diuresis yesterday. - Patient Data Vitals - Most Recent: Last Vital Signs Temp 36.1 C 04/12/18 08:05 Pulse 82 04/12/18 09:15 Resp 18 04/12/18 08:05 BP 97/59 L 04/12/18 09:01 Pulse Ox 94 L 04/12/18 08:05 Weight - Most Recent: 100.335 kg I&O - Last 24 Hours: Intake & Output 04/11/18 04/12/18 04/12/18 22:59 06:59 14:59 Intake Total 770 290 Output Total 300 325 Balance 470 290 -325 Lab Results Last 24 Hours: Laboratory Results - last 24 hr 04/12/18 04/12/18 Range/Units 05:04 05:04 WBC 15.5 H (4.5-11.0) K/uL RBC 2.82 L (4.30-5.90) M/uL Hgb 8.9 L (12.0-15.0) g/dL Hct 27.9 L (40.0-54.0) % MCV 99 H (80-98) fL MCH 32 H (27-31) pg MCHC 32 (32-36) % Plt Count 194 (150-400) K/uL Sodium 143 (140-148) mmol/L Potassium 4.1 (3.6-5.2) mmol/L Chloride 104 (100-108) mmol/L Carbon Dioxide 35 H (21-32) mmol/L Anion Gap 8.1 (5.0-14.0) mmol/L BUN 20 H (7-18) mg/dL Creatinine 1.2 (0.8-1.3) mg/dL Est Cr Clr Drug Dosing 45.53 mL/min Estimated GFR (MDRD) 59 L (>60) Glucose 93 (74-106) mg/dL Calcium 8.1 L (8.5-10.1) mg/dL [facility] Results Last 24 Hours: Microbiology 04/07/18 12:37 Aerobic Blood Culture - Preliminary Blood - Arm, Left NO GROWTH AFTER 4 DAYS Anaerobic Blood Culture - Preliminary NO GROWTH AFTER 4 DAYS 04/07/18 12:42 Aerobic Blood Culture - Preliminary Blood - Venous - Iv Start NO GROWTH AFTER 4 DAYS Anaerobic Blood Culture - Preliminary NO GROWTH AFTER 4 DAYS Med Orders - Current: Current Medications Acetaminophen (Tylenol) 650 mg PO Q4H PRN PRN Reason: Pain (Mild 1-3)/fever Albuterol (Proventil Neb Soln) 2.5 mg NEB Q4H PRN PRN Reason: Shortness Of Breath/wheezing Last Admin: 04/08/18 03:47 Dose: 2.5 mg Albuterol/Ipratropium (Duoneb 3.0-0.5 Mg/3 Ml) 3 ml NEB QIDRT [facility] Last Admin: 04/12/18 07:26 Dose: 3 ml Apixaban (Eliquis) 5 mg PO BID [facility] Last Admin: 04/12/18 09:02 Dose: 5 mg Carvedilol (Coreg) 12.5 mg PO BIDMEALS [facility] Last Admin: 04/12/18 09:01 Dose: 12.5 mg Levofloxacin (Levaquin) 750 mg PO Q24H [facility] Last Admin: 04/11/18 16:46 Dose: 750 mg Magnesium Hydroxide (Milk Of Magnesia) 30 ml PO Q12H PRN PRN Reason: Constipation Ondansetron HCl (Zofran) 4 mg IV Q4H PRN PRN Reason: Nausea/Vomiting Oxycodone HCl (Oxycodone) 5 mg PO Q4H PRN PRN Reason: Pain (moderate 4-6) Pantoprazole Sodium (Protonix) 40 mg PO ACBREAKFAST [facility] Last Admin: 04/12/18 09:01 Dose: 40 mg Polyethylene Glycol (Miralax) 17 gm PO DAILY PRN PRN Reason: Constipation Prednisone (Prednisone) 20 mg PO WITHBREAKFAST [facility] Last Admin: 04/12/18 09:02 Dose: 20 mg Senna/Docusate Sodium (Senna Plus) 1 tab PO BID PRN PRN Reason: Constipation Sodium Chloride (Saline Flush) 10 ml FLUSH ASDIRECTED PRN PRN Reason: Keep Vein Open Discontinued Medications Albuterol (Proventil Neb Soln) 2.5 mg NEB ONETIME ONE Stop: 04/07/18 13:13 Last Admin: 04/07/18 13:31 Dose: 2.5 mg Apixaban (Eliquis) 5 mg PO BID [facility] Last Admin: 04/09/18 09:35 Dose: Not Given Bisacodyl (Dulcolax) 10 mg PO ONETIME ONE Stop: 04/10/18 13:26 Last Admin: 04/10/18 14:30 Dose: 10 mg Carvedilol (Coreg) 6.25 mg PO BID [facility] Last Admin: 04/10/18 09:57 Dose: 6.25 mg Carvedilol (Coreg) 12.5 mg PO BID [facility] Last Admin: 04/11/18 15:28 Dose: 12.5 mg Carvedilol (Coreg) 12.5 mg PO ONETIME ONE Stop: 04/11/18 23:31 Last Admin: 04/11/18 23:53 Dose: 12.5 mg Fentanyl (Sublimaze) Confirm Administered Dose 100 mcg .ROUTE .STK-MED ONE Stop: 04/11/18 11:18 Furosemide (Lasix) 20 mg IVPUSH NOW ONE Stop: 04/10/18 09:16 Last Admin: 04/10/18 09:56 Dose: 20 mg Furosemide (Lasix) 20 mg IVPUSH ONETIME ONE Stop: 04/10/18 18:46 Last Admin: 04/10/18 18:54 Dose: 20 mg Furosemide (Lasix) 20 mg IVPUSH ONETIME ONE Stop: 04/11/18 09:31 Last Admin: 04/11/18 11:25 Dose: 20 mg Sodium Chloride (Normal Saline) 1,000 mls @ 999 mls/hr IV ASDIRECTED [facility] Last Admin: 04/07/18 13:26 Dose: 999 mls/hr Levofloxacin/Dextrose 500 mg/ (Premix) 100 mls @ 100 mls/hr IV ONETIME ONE Stop: 04/07/18 14:33 Last Admin: 04/07/18 20:08 Dose: Not Given Aztreonam 1 gm/ Sodium (Chloride) 50 mls @ 100 mls/hr IV ONETIME ONE Stop: 04/07/18 14:04 Last Admin: 04/07/18 20:08 Dose: Not Given Sodium Chloride (Normal Saline) 1,000 mls @ 999 mls/hr IV ASDIRECTED [facility] Last Admin: 04/07/18 14:24 Dose: 999 mls/hr Piperacillin/Tazobactam/ (Dextrose 3.375 gm/ Premix) 50 mls @ 100 mls/hr IV ONETIME ONE Stop: 04/07/18 14:29 Last Admin: 04/07/18 14:15 Dose: 100 mls/hr Lactated Ringer's (Ringers, Lactated) 1,000 mls @ 500 mls/hr IV ASDIRECTED [facility] Stop: 04/07/18 18:40 Lactated Ringer's (Ringers, Lactated) 1,000 mls @ 125 mls/hr IV ASDIRECTED [facility] Last Admin: 04/10/18 00:58 Dose: 125 mls/hr Levofloxacin/Dextrose 750 mg/ (Premix) 150 mls @ 100 mls/hr IV Q48H [facility] Last Admin: 04/09/18 16:05 Dose: 100 mls/hr Piperacillin/Tazobactam/ (Dextrose 3.375 gm/ Premix) 50 mls @ 100 mls/hr IV Q6H [facility] Last Admin: 04/12/18 07:53 Dose: 100 mls/hr Vancomycin HCl 1.5 gm/ Sodium (Chloride) 250 mls @ 167 mls/hr IV Q24H [facility] Last Admin: 04/08/18 16:07 Dose: 167 mls/hr Norepinephrine Bitartrate 4 mg (/ Dextrose/Water) 250 mls @ 7.5 mls/hr IV TITRATE [facility]; Protocol Last Titration: 04/10/18 09:05 Dose: 0 mcg/min, 0 mls/hr Dextrose/Water (Dextrose 5% In Water) Confirm Administered Dose 250 mls @ as directed .ROUTE .STK-MED ONE Stop: 04/07/18 17:09 Last Admin: 04/07/18 17:46 Dose: Not Given Lactated Ringer's (Ringers, Lactated) 500 mls @ 500 mls/hr IV ONETIME ONE Stop: 04/07/18 23:02 Last Admin: 04/07/18 22:05 Dose: 500 mls/hr Pantoprazole Sodium 80 mg/ (Sodium Chloride) 100 mls @ 8 mls/hr IV .[id number] [facility] Last Admin: 04/09/18 07:29 Dose: Not Given Vasopressin 100 units/ Sodium (Chloride) 100 mls @ 6 mls/hr IV TITRATE [facility]; Protocol Last Titration: 04/08/18 08:42 Dose: 0.05 units/min, 3 mls/hr Pantoprazole Sodium 80 mg/ (Sodium Chloride) 100 mls @ 10 mls/hr IV Q10H [facility] Last Admin: 04/07/18 23:19 Dose: 8 mls/hr Sodium Chloride (Normal Saline) Confirm Administered Dose 100 mls @ as directed .ROUTE .STK-MED ONE Stop: 04/07/18 23:00 Last Admin: 04/07/18 23:15 Dose: Not Given Magnesium Sulfate 2 gm/ Premix 50 mls @ 25 mls/hr IV ONETIME ONE Stop: 04/08/18 11:59 Last Admin: 04/08/18 09:42 Dose: 25 mls/hr Pantoprazole Sodium 80 mg/ (Sodium Chloride) 100 mls @ 10 mls/hr IV Q10H [facility] Last Admin: 04/09/18 05:47 Dose: 10 mls/hr Levofloxacin/Dextrose 750 mg/ (Premix) 150 mls @ 100 mls/hr IV Q24H [facility] Last Admin: 04/10/18 15:09 Dose: 100 mls/hr Lactated Ringer's (Ringers, Lactated) 1,000 mls @ 50 mls/hr IV ASDIRECTED [facility] Last Admin: 04/11/18 08:44 Dose: 50 mls/hr Methylprednisolone Sodium Succinate (Solu-Medrol) 40 mg IVPUSH Q6H [facility] Last Admin: 04/10/18 10:04 Dose: Not Given Midazolam HCl (Versed 1 Mg/Ml) Confirm Administered Dose 2 mg .ROUTE .STK-MED ONE Stop: 04/11/18 11:18 Norepinephrine Bitartrate (Levophed) Confirm Administered Dose 4 mg .ROUTE .STK- MED ONE Stop: 04/07/18 17:07 Last Admin: 04/07/18 17:44 Dose: Not Given Pantoprazole Sodium (Protonix Iv) 40 mg IVPUSH ONETIME ONE Stop: 04/07/18 14:13 Last Admin: 04/07/18 14:44 Dose: 40 mg Pantoprazole Sodium (Protonix Iv) 80 mg IVPUSH .BOLUS ONE Stop: 04/07/18 22:33 Last Admin: 04/07/18 22:54 Dose: 80 mg Polyethylene Glycol (Miralax) 238 gm PO ONETIME ONE Stop: 04/10/18 13:26 Last Admin: 04/10/18 14:30 Dose: 238 gram Prednisone (Prednisone) 40 mg PO WITHBREAKFAST [facility] Last Admin: 04/11/18 08:41 Dose: Not Given Propofol (Diprivan 20 Ml) Confirm Administered Dose 200 mg .ROUTE .STK-MED ONE Stop: 04/11/18 11:17 Vancomycin HCl (Vancomycin) 1 gm IV .PHARMACY TO DOSE [facility] Stop: 04/07/18 17:00 Vasopressin (Vasopressin) Confirm Administered Dose 20 units .ROUTE .STK-MED ONE Stop: 04/07/18 22:55 Last Admin: 04/07/18 23:15 Dose: Not Given Vasopressin (Vasopressin) Confirm Administered Dose 80 units .ROUTE .STK-MED ONE Stop: 04/07/18 22:59 Last Admin: 04/07/18 23:15 Dose: Not Given - Exam Quality Assessment: Supplemental Oxygen General: Alert, Oriented, Cooperative, No Acute Distress Neck: Supple Lungs: Clear to Auscultation, Normal Respiratory Effort, Rhonchi (mild upper airway ). No: Wheezing GI/Abdominal Exam: Normal Bowel Sounds, Soft, No Distention Extremities: Pedal Edema (mild bilateral ankle edmea). No: Increased Warmth Psy/Mental Status: Alert, Normal Affect - Problem List Review Problem List Initiated/Reviewed/Updated: Yes - My Orders Last 24 Hours: My Active Orders 04/11/18 16:00 Levofloxacin [Levaquin] 750 mg PO Q24H 04/11/18 21:00 Apixaban [Eliquis] 5 mg PO BID 04/12/18 08:00 Carvedilol [Coreg] 12.5 mg PO BIDMEALS predniSONE 20 mg PO WITHBREAKFAST 04/12/18 10:36 Furosemide [Lasix] 20 mg IVPUSH ONETIME ONE 04/12/18 10:38 Discontinue Telemetry Monitoring [Cardiac Monitoring Discontinue] [RC] Click to Edit 04/12/18 Lunch Regular Diet [DIET] 04/13/18 05:00 BASIC METABOLIC PANEL,BMP [CHEM] Timed CBC W/O DIFF,HEMOGRAM [HEME] Timed (1) - Plan Plan:: ASSESSMENT AND PLAN Septic shock - most likely source is pulmonary though bacteremia from his gastrointestinal bleeding could be considered. White blood cell count trending down and clinically much better today. Still mild evidence for volume overload. -Furosemide 20 mg 1 and reassess -Continue levofloxacin -Discontinue Pip/Tazo -Follow-up blood cultures HYPOXIC RESPIRATORY FAILURE - underlying COPD, but is not oxygen dependent at home. Likely secondary to underlying pulmonary infection with bronchitis the most likely culprit. Slowly getting better and requiring only 1 L of oxygen via nasal cannula at this time. -Supplemental oxygen as needed -Nebulized albuterol and duo nebs prn -Continue prednisone (20 mg for 4 days including today than discontinue) -Antibiotics as above ACUTE KIDNEY INJURY - history of underlying chronic kidney disease, kidney function back to normal. -repeat labs in the morning ATRIAL FIBRILLATION - rate control acceptable. -Cardiac monitoring -Continue carvedilol 12.5 mg, anticipate returning to normal doses blood pressure improves -Restart apixaban HEMATOCHEZIA WITH ACUTE BLOOD LOSS ANEMIA - EGD revealed a prepyloric ulcer. No obvious source of bleeding from the colon. -Restart anticoagulation -PPI -Repeat hemoglobin in the morning MAINTENANCE ISSUES -DVT prophylaxis; restarting anticoagulation as above -GI prophylaxis; twice daily PPI -Núñez catheter; removed 04/08 -Nutrition; regular diet DISPOSITION - anticipate discharge to home after the hospital stay, likely tomorrow if we can wean him off supplemental oxygen overnight Glenn Grimaldo MD
[2018-04-12] MEDS ORDERED: Furosemide 20 MG/2 ML VIAL IVPUSH ONE (11:00)
[2018-04-12] MEDS: Levofloxacin 250 MG Tab PO SCH (16:03)
[2018-04-13] MEDS: Albuterol/Ipratropium 3.0-0.5 MG/3 ML Neb Soln NEB SCH ×2 (07:18→11:16)
[2018-04-13] MEDS: Carvedilol 12.5 MG Tab PO SCH (07:50)
[2018-04-13] MEDS: predniSONE 20 MG Tab PO SCH (07:50)
[2018-04-13] MEDS: Pantoprazole 40 MG Tab.CR PO SCH (07:51)
[2018-04-13] MEDS: Apixaban 5 MG Tab PO SCH (08:00)
[2018-04-13] MEDS ORDERED: Potassium Chloride 20 MEQ Tab.ER PO ONE (09:00)
--- NOTE | 2018-04-13 10:07 | PCM.DCSUM1 ---
Discharge Summary - Hospital Course Brief History: 72-year-old male with history of atrial fibrillation, COPD who presented with progressive cough and shortness of breath and was admitted for management of acute bronchitis with hypoxic respiratory failure and sepsis - Discharge Data Discharge Date: 04/13/18 Discharge Disposition: Home, W Home Health Agency 06 Condition: Good - Discharge Diagnosis/Problem(s) (1) Acute bronchitis SNOMED Code(s): 52599175 ICD Code: J20.9 - ACUTE BRONCHITIS, UNSPECIFIED Status: Acute Qualifiers: Bronchitis organism: unspecified organism Qualified Code(s): J20.9 - Acute bronchitis, unspecified (2) Sepsis SNOMED Code(s): 60209786 ICD Code: A41.9 - SEPSIS, UNSPECIFIED ORGANISM Status: Acute Qualifiers: Sepsis type: sepsis due to unspecified organism Qualified Code(s): A41.9 - Sepsis, unspecified organism (3) Acute respiratory failure with hypoxia SNOMED Code(s): 76113869, 374322864 ICD Code: J96.01 - ACUTE RESPIRATORY FAILURE WITH HYPOXIA Status: Acute (4) Anemia due to acute blood loss SNOMED Code(s): 309759216 ICD Code: D62 - ACUTE POSTHEMORRHAGIC ANEMIA Status: Acute (5) Atrial fibrillation with rapid ventricular response SNOMED Code(s): 802412264715598 ICD Code: I48.91 - UNSPECIFIED ATRIAL FIBRILLATION Status: Acute (6) GI bleeding SNOMED Code(s): 21624409 ICD Code: K92.2 - GASTROINTESTINAL HEMORRHAGE, UNSPECIFIED Status: Acute Priority: High Qualifiers: GI bleed type/associated pathology: gastric ulcer Qualified Code(s): K25.4 - Chronic or unspecified gastric ulcer with hemorrhage (7) NATALI (acute kidney injury) SNOMED Code(s): 05816102 ICD Code: N17.9 - ACUTE KIDNEY FAILURE, UNSPECIFIED Status: Acute Priority: High (8) Gastric ulcer SNOMED Code(s): 033410531 ICD Code: K25.9 - GASTRIC ULCER, UNSP ACUTE OR CHRONIC, W/O HEMOR OR PERF Status: Acute Qualifiers: Gastric ulcer chronicity: acute Gastric ulcer complication status: with hemorrhage Qualified Code(s): K25.0 - Acute gastric ulcer with hemorrhage - Patient Summary/Data Consults: Consultations 04/11/18 08:43 PT Evaluation and Treatment [CONS] Routine Please Evaluate and Treat. PT Reason for Consult: Strengthening This query below is only for informational purposes and is not editable. Admission Diagnosis/Problem: Sepsis Hospital Course: Jacques presented to the emergency room with progressive cough, shortness of breath and fever. Workup in the emergency room was suggestive of acute hypoxic respiratory failure with presumed respiratory infection as well as sepsis. He did not have a definitive infiltrate on chest x-ray. He required noninvasive ventilation at the time of presentation. He was started on broad-spectrum antibiotics as well as IV fluids and was admitted to the intensive care unit. A CT scan of the chest, abdomen and pelvis did not reveal any acute pathology. There is no evidence for pulmonary embolism or infiltrate. Overnight following admission his condition declined and he required initiation of both norepinephrine and eventually vasopressin for blood pressure support in the setting of septic shock. He was noted to have some hematochezia and a hemoglobin level that was trending down over the first 24 hours. Throughout the day following admission his condition did stabilize after aggressive volume resuscitation and vasopressor support. Respiratory status slowly improved and he had a decreasing noninvasive ventilation requirement. Also noted at the time of presentation was acute kidney injury and creatinine levels were improving with IV fluid resuscitation. Over the next 24 hours he had additional clinical improvement with improving oxygenation. Vasopressor support requirements were decreasing in the vasopressin was able to be discontinued. He had ongoing hematochezia throughout the second day of hospitalization. Hemoglobin level was slowly trending down but his hemoglobin level never dropped below 8. We did elect to discontinue his systemic anticoagulation with hemoglobin level that was trending down and ongoing hematochezia. By hospital day 3 vasopressor requirements continued to decrease. He has been off of noninvasive ventilation and oxygenation has been stable. Fever curve has improved. Cultures are all negative. Heart rate is starting to rise with his atrial fibrillation and low dose carvedilol was reinitiated. His kidney function continued to improve slowly but steadily. Over the next couple of days we had ongoing improvement in his respiratory status and we were able to wean him off of his vasopressor support. With the ongoing hematochezia and hemoglobin dropped to near 8 did ask the surgery folks to perform an EGD and colonoscopy. This was performed on hospital day 5. In the colon there were a few small polyps but no evidence for bleeding. In the stomach he had a prepyloric ulcer as well as an abnormal appearing mass of soft tissue in the duodenum. It appeared similar in color to the mucosa around it. Biopsies were obtained. Over the next 24 hours his supplemental oxygen requirement decreased but did not quite resolve. His hematochezia resolved and hemoglobin level started to slowly trend up. Atrial fibrillation was under better control with increasing doses of his beta dina. His anticoagulation was reintroduced with no recurrence of the hematochezia. By the day of discharge we were able to wean him off the supplemental oxygen. His atrial fibrillation has been well-controlled. Kidney function is back to normal. He was interested in home care including nursing and physical therapy to ease the transition home after the hospital stay. He will receive 4 additional doses of antibiotic therapy and 3 additional doses of steroids which have been tapering throughout the course of the hospital stay. - Patient Instructions Diet: Heart Healthy Diet Activity: As Tolerated Showering/Bathing: May Shower Notify Provider of: Fever, Increased Pain, Nausea and/or Vomiting Other/Special Instructions: 1. You were in the hospital for management of acute bronchitis with respiratory failure and sepsis syndrome. We did not determine a causative bacteria but you have been improving with antibiotics, steroids and additional management in the hospital. we have been able to wean you off the supplemental oxygen. I do recommend additional antibiotic therapy and steroid therapy as outlined below: --Levofloxacin 750 mg tablet, take 1 tablet daily at 4 PM for 4 days. Your next dose of this antibiotic is due this afternoon. -- prednisone 20 mg tablets, take 20 mg daily with breakfast for 3 doses. Your next dose is due tomorrow morning. 2. During the hospital stay we discovered bleeding from your gastrointestinal tract. We performed a colonoscopy and EGD to determine the source of bleeding. We discovered an ulcer in your stomach. I believe this was the source of bleeding and recommend that you take an acid blocking medication to help this ulcer heal and prevent additional bleeding. You should take pantoprazole (Protonix) 40 mg twice daily with meals for one month and then take the medication once daily thereafter. 3. Continue your other home medications as previously prescribed including the medications for atrial fibrillation and the blood thinner apixaban (Eliquis). 4. Follow up as scheduled with Dr. Rangel. 5. Seek medical attention if you develop fever greater than 101, have sudden onset of shortness of breath or if you develop chest pain/pressure. - Discharge Plan Prescriptions/Med Rec: Levofloxacin 750 mg PO Q24H #4 tablet Pantoprazole [ProTONIX] 40 mg PO BIDAC #60 tab.cr predniSONE 20 mg PO WITHBREAKFAST #3 tablet Home Medications: Home Meds Albuterol Sulfate [Ventolin Hfa] 1 - 2 puff INH QID PRN 02/27/18 [History] Apixaban [Eliquis] 5 mg PO BID 02/27/18 [History] Carvedilol [Coreg] 25 mg PO BID 02/27/18 [History] Furosemide [Lasix] 20 mg PO DAILY 02/27/18 [History] Lisinopril [Prinivil] 40 mg PO DAILY 02/27/18 [History] Levofloxacin 750 mg PO Q24H #4 tablet 04/13/18 [Rx] Pantoprazole [ProTONIX] 40 mg PO BIDAC #60 tab.cr 04/13/18 [Rx] predniSONE 20 mg PO WITHBREAKFAST #3 tablet 04/13/18 [Rx] Patient Handouts: Levofloxacin tablets, Prednisone tablets, Acute Bronchitis, Adult Referrals: Navneet Rangel MD [Physician] - 04/25/18 1:30 pm - Discharge Summary/Plan Comment DC Time >30 min.: No (35 - coordinating home health care) - Patient Data Vitals - Most Recent: Last Vital Signs Temp 35.7 C 04/13/18 07:36 Pulse 87 04/13/18 07:50 Resp 16 04/13/18 07:36 BP 109/47 L 04/13/18 07:50 Pulse Ox 95 04/13/18 07:36 Weight - Most Recent: 101.877 kg I&O - Last 24 hours: Intake & Output 04/12/18 04/13/18 04/13/18 22:59 06:59 14:59 Intake Total 120 400 Output Total 300 400 800 Balance -180 -400 -400 Lab Results - Last 24 hrs: Laboratory Results - last 24 hr 04/13/18 04/13/18 Range/Units 06:12 06:12 WBC 14.8 H (4.5-11.0) K/uL RBC 3.00 L (4.30-5.90) M/uL Hgb 9.4 L (12.0-15.0) g/dL Hct 29.7 L (40.0-54.0) % MCV 99 H (80-98) fL MCH 31 (27-31) pg MCHC 32 (32-36) % Plt Count 215 (150-400) K/uL Sodium 141 (140-148) mmol/L Potassium 3.4 L (3.6-5.2) mmol/L Chloride 104 (100-108) mmol/L Carbon Dioxide 34 H (21-32) mmol/L Anion Gap 6.4 (5.0-14.0) mmol/L BUN 23 H (7-18) mg/dL Creatinine 1.1 (0.8-1.3) mg/dL Est Cr Clr Drug Dosing 49.66 mL/min Estimated GFR (MDRD) > 60 (>60) Glucose 97 (74-106) mg/dL Calcium 8.3 L (8.5-10.1) mg/dL GABINO Results - Last 24 hrs: Microbiology 04/11/18 13:32 CLOtest - Final Stomach NEGATIVE CLOTEST 04/07/18 12:37 Aerobic Blood Culture - Final Blood - Arm, Left NO GROWTH AFTER 5 DAYS Anaerobic Blood Culture - Final NO GROWTH AFTER 5 DAYS 04/07/18 12:42 Aerobic Blood Culture - Final Blood - Venous - Iv Start NO GROWTH AFTER 5 DAYS Anaerobic Blood Culture - Final NO GROWTH AFTER 5 DAYS Med Orders - Current: Current Medications Acetaminophen (Tylenol) 650 mg PO Q4H PRN PRN Reason: Pain (Mild 1-3)/fever Albuterol (Proventil Neb Soln) 2.5 mg NEB Q4H PRN PRN Reason: Shortness Of Breath/wheezing Last Admin: 04/08/18 03:47 Dose: 2.5 mg Albuterol/Ipratropium (Duoneb 3.0-0.5 Mg/3 Ml) 3 ml NEB QIDRT [facility] Last Admin: 04/13/18 07:18 Dose: 3 ml Apixaban (Eliquis) 5 mg PO BID [facility] Last Admin: 04/13/18 08:00 Dose: 5 mg Carvedilol (Coreg) 12.5 mg PO BIDMEALS [facility] Last Admin: 04/13/18 07:50 Dose: 12.5 mg Levofloxacin (Levaquin) 750 mg PO Q24H [facility] Last Admin: 04/12/18 16:03 Dose: 750 mg Magnesium Hydroxide (Milk Of Magnesia) 30 ml PO Q12H PRN PRN Reason: Constipation Ondansetron HCl (Zofran) 4 mg IV Q4H PRN PRN Reason: Nausea/Vomiting Oxycodone HCl (Oxycodone) 5 mg PO Q4H PRN PRN Reason: Pain (moderate 4-6) [facility] Admin: 04/13/18 07:51 Dose: 40 mg Polyethylene Glycol (Miralax) 17 gm PO DAILY PRN PRN Reason: Constipation Prednisone (Prednisone) 20 mg PO WITHBREAKFAST [facility] Last Admin: 04/13/18 07:50 Dose: 20 mg Senna/Docusate Sodium (Senna Plus) 1 tab PO BID PRN PRN Reason: Constipation Sodium Chloride (Saline Flush) 10 ml FLUSH ASDIRECTED PRN PRN Reason: Keep Vein Open Discontinued Medications Albuterol (Proventil Neb Soln) 2.5 mg NEB ONETIME ONE Stop: 04/07/18 13:13 Last Admin: 04/07/18 13:31 Dose: 2.5 mg Apixaban (Eliquis) 5 mg PO BID [facility] Last Admin: 04/09/18 09:35 Dose: Not Given Bisacodyl (Dulcolax) 10 mg PO ONETIME ONE Stop: 04/10/18 13:26 Last Admin: 04/10/18 14:30 Dose: 10 mg Carvedilol (Coreg) 6.25 mg PO BID [facility] Last Admin: 04/10/18 09:57 Dose: 6.25 mg Carvedilol (Coreg) 12.5 mg PO BID [facility] Last Admin: 04/11/18 15:28 Dose: 12.5 mg Carvedilol (Coreg) 12.5 mg PO ONETIME ONE Stop: 04/11/18 23:31 Last Admin: 04/11/18 23:53 Dose: 12.5 mg Fentanyl (Sublimaze) Confirm Administered Dose 100 mcg .ROUTE .STK-MED ONE Stop: 04/11/18 11:18 Furosemide (Lasix) 20 mg IVPUSH NOW ONE Stop: 04/10/18 09:16 Last Admin: 04/10/18 09:56 Dose: 20 mg Furosemide (Lasix) 20 mg IVPUSH ONETIME ONE Stop: 04/10/18 18:46 Last Admin: 04/10/18 18:54 Dose: 20 mg Furosemide (Lasix) 20 mg IVPUSH ONETIME ONE Stop: 04/11/18 09:31 Last Admin: 04/11/18 11:25 Dose: 20 mg Furosemide (Lasix) 20 mg IVPUSH ONETIME ONE Stop: 04/12/18 11:01 Last Admin: 04/12/18 11:48 Dose: 20 mg Sodium Chloride (Normal Saline) 1,000 mls @ 999 mls/hr IV ASDIRECTED [facility] Last Admin: 04/07/18 13:26 Dose: 999 mls/hr Levofloxacin/Dextrose 500 mg/ (Premix) 100 mls @ 100 mls/hr IV ONETIME ONE Stop: 04/07/18 14:33 Last Admin: 04/07/18 20:08 Dose: Not Given Aztreonam 1 gm/ Sodium (Chloride) 50 mls @ 100 mls/hr IV ONETIME ONE Stop: 04/07/18 14:04 Last Admin: 04/07/18 20:08 Dose: Not Given Sodium Chloride (Normal Saline) 1,000 mls @ 999 mls/hr IV ASDIRECTED [facility] Last Admin: 04/07/18 14:24 Dose: 999 mls/hr Piperacillin/Tazobactam/ (Dextrose 3.375 gm/ Premix) 50 mls @ 100 mls/hr IV ONETIME ONE Stop: 04/07/18 14:29 Last Admin: 04/07/18 14:15 Dose: 100 mls/hr Lactated Ringer's (Ringers, Lactated) 1,000 mls @ 500 mls/hr IV ASDIRECTED [facility] Stop: 04/07/18 18:40 Lactated Ringer's (Ringers, Lactated) 1,000 mls @ 125 mls/hr IV ASDIRECTED [facility] Last Admin: 04/10/18 00:58 Dose: 125 mls/hr Levofloxacin/Dextrose 750 mg/ (Premix) 150 mls @ 100 mls/hr IV Q48H [facility] Last Admin: 04/09/18 16:05 Dose: 100 mls/hr Piperacillin/Tazobactam/ (Dextrose 3.375 gm/ Premix) 50 mls @ 100 mls/hr IV Q6H [facility] Last Admin: 04/12/18 07:53 Dose: 100 mls/hr Vancomycin HCl 1.5 gm/ Sodium (Chloride) 250 mls @ 167 mls/hr IV Q24H [facility] Last Admin: 04/08/18 16:07 Dose: 167 mls/hr Norepinephrine Bitartrate 4 mg (/ Dextrose/Water) 250 mls @ 7.5 mls/hr IV TITRATE [facility]; Protocol Last Titration: 04/10/18 09:05 Dose: 0 mcg/min, 0 mls/hr Dextrose/Water (Dextrose 5% In Water) Confirm Administered Dose 250 mls @ as directed .ROUTE .STK-MED ONE Stop: 04/07/18 17:09 Last Admin: 04/07/18 17:46 Dose: Not Given Lactated Ringer's (Ringers, Lactated) 500 mls @ 500 mls/hr IV ONETIME ONE Stop: 04/07/18 23:02 Last Admin: 04/07/18 22:05 Dose: 500 mls/hr Pantoprazole Sodium 80 mg/ (Sodium Chloride) 100 mls @ 8 mls/hr IV .[id number] [facility] Last Admin: 04/09/18 07:29 Dose: Not Given Vasopressin 100 units/ Sodium (Chloride) 100 mls @ 6 mls/hr IV TITRATE [facility]; Protocol Last Titration: 04/08/18 08:42 Dose: 0.05 units/min, 3 mls/hr Pantoprazole Sodium 80 mg/ (Sodium Chloride) 100 mls @ 10 mls/hr IV Q10H [facility] Last Admin: 04/07/18 23:19 Dose: 8 mls/hr Sodium Chloride (Normal Saline) Confirm Administered Dose 100 mls @ as directed .ROUTE .STK-MED ONE Stop: 04/07/18 23:00 Last Admin: 04/07/18 23:15 Dose: Not Given Magnesium Sulfate 2 gm/ Premix 50 mls @ 25 mls/hr IV ONETIME ONE Stop: 04/08/18 11:59 Last Admin: 04/08/18 09:42 Dose: 25 mls/hr Pantoprazole Sodium 80 mg/ (Sodium Chloride) 100 mls @ 10 mls/hr IV Q10H [facility] Last Admin: 04/09/18 05:47 Dose: 10 mls/hr Levofloxacin/Dextrose 750 mg/ (Premix) 150 mls @ 100 mls/hr IV Q24H [facility] Last Admin: 04/10/18 15:09 Dose: 100 mls/hr Lactated Ringer's (Ringers, Lactated) 1,000 mls @ 50 mls/hr IV ASDIRECTED [facility] Last Admin: 04/11/18 08:44 Dose: 50 mls/hr Methylprednisolone Sodium Succinate (Solu-Medrol) 40 mg IVPUSH Q6H [facility] Last Admin: 04/10/18 10:04 Dose: Not Given Midazolam HCl (Versed 1 Mg/Ml) Confirm Administered Dose 2 mg .ROUTE .STK-MED ONE Stop: 04/11/18 11:18 Norepinephrine Bitartrate (Levophed) Confirm Administered Dose 4 mg .ROUTE .STK- MED ONE Stop: 04/07/18 17:07 Last Admin: 04/07/18 17:44 Dose: Not Given Pantoprazole Sodium (Protonix Iv) 40 mg IVPUSH ONETIME ONE Stop: 04/07/18 14:13 Last Admin: 04/07/18 14:44 Dose: 40 mg Pantoprazole Sodium (Protonix Iv) 80 mg IVPUSH .BOLUS ONE Stop: 04/07/18 22:33 Last Admin: 04/07/18 22:54 Dose: 80 mg Pantoprazole Sodium (Protonix) 40 mg PO ACBREAKFAST [facility] Last Admin: 04/12/18 09:01 Dose: 40 mg Polyethylene Glycol (Miralax) 238 gm PO ONETIME ONE Stop: 04/10/18 13:26 Last Admin: 04/10/18 14:30 Dose: 238 gram Potassium Chloride (Klor-Con M20) 40 meq PO ONETIME ONE Stop: 04/13/18 09:01 Prednisone (Prednisone) 40 mg PO WITHBREAKFAST [facility] Last Admin: 04/11/18 08:41 Dose: Not Given Propofol (Diprivan 20 Ml) Confirm Administered Dose 200 mg .ROUTE .STK-MED ONE Stop: 04/11/18 11:17 Vancomycin HCl (Vancomycin) 1 gm IV .PHARMACY TO DOSE [facility] Stop: 04/07/18 17:00 Vasopressin (Vasopressin) Confirm Administered Dose 20 units .ROUTE .STK-MED ONE Stop: 04/07/18 22:55 Last Admin: 04/07/18 23:15 Dose: Not Given Vasopressin (Vasopressin) Confirm Administered Dose 80 units .ROUTE .STK-MED ONE Stop: 04/07/18 22:59 Last Admin: 04/07/18 23:15 Dose: Not Given - Exam Quality Assessment: Denies: Supplemental Oxygen General: Reports: Alert, Oriented, Cooperative, No Acute Distress Neck: Reports: Supple Lungs: Reports: Normal Respiratory Effort GI/Abdominal Exam: Soft, No Distention Extremities: Pedal Edema (very mild bilateral ankle edema) Psy/Mental Status: Reports: Alert, Normal Affect *Q Meaningful Use (DIS) - VTE *Q VTE Pharmacological Contraindications *Q: High INR Value
--- NOTE | 2018-04-16 20:47 | OR ---
DATE OF PROCEDURE: 04/11/2018 PREOPERATIVE DIAGNOSES: 1. Anemia. 2. Hematochezia. POSTOPERATIVE DIAGNOSES: 1. Anemia. 2. Hematochezia. 3. Prepyloric ulcer. 4. Duodenal mass. 5. Diverticulosis. 6. Two small colon polyps. PROCEDURE PERFORMED: 1. Esophagogastroduodenoscopy with biopsy of duodenal mass, biopsy of antrum including the area of the prepyloric ulcer for CLOtest and for pathology to look for H. pylori. 2. Colonoscopy to the cecum with biopsy resection of 2 small polyps, cecum and transverse colon. SURGEON: Jones Woodall MD. ANESTHESIA: IV anesthesia with monitored anesthesia care. INDICATION: This 72-year-old white male was admitted a few days ago with shortness of breath. He had some hematochezia and is anemic. A request was made for upper and lower endoscopy. I counseled him for upper and lower endoscopy with possible biopsy and/or polypectomy including risks alternatives and he gave his informed consent to proceed. DESCRIPTION OF PROCEDURE: The patient was placed in the left lateral decubitus position. IV anesthesia was administered by the Anesthesia Service. Time-out was held. The flexible video Olympus upper endoscope was passed through his mouth, down the esophagus, and into his stomach. The scope was easily passed through the pylorus, into the duodenum reaching its third portion. The scope was then slowly withdrawn examining the mucosa throughout, the third portion of the duodenum appeared unremarkable. The duodenal bulb appeared unremarkable. There was some excess tissue in the area of the second portion of the duodenum, which protruded out into the lumen. The mucosa appeared to be unremarkable. We obtained biopsies of this area. The scope was then brought out of the duodenum up through the pylorus into the antrum. Here, we saw a prepyloric ulcer. We biopsied the antrum for CLOtest and for pathology to look for Helicobacter pylori. This included the area of the prepyloric ulcer. The scope was retroflexed. The proximal stomach appeared unremarkable. The scope was straightened and brought up through the GE junction. This appeared unremarkable. The scope was then brought up through the unremarkable appearing esophagus and was removed. Next, a rectal exam was performed which was unremarkable. The flexible video Olympus colonoscope was introduced through his anus, up his rectum, out his colon all the way to the cecum. In the cecum, we saw a small polyp which was removed with a couple of bites of biopsy forceps. Also en route to the cecum, we saw a few scattered fairly shallow left- sided diverticula. There was no bleeding or inflammation associated with them. The scope was then withdrawn from the cecum, examining the mucosa throughout. No additional mucosal abnormalities were noted other than a small polyp seen in the transverse colon. This also was removed with the biopsy forceps. The scope was retroflexed in the rectum with the distal rectum appearing unremarkable. The scope was straightened and removed. He tolerated the procedure well. Jones Woodall MD /[id number]
== END 2018-04-13 12:58 | disposition home health service (06) | DRG 871 ==
LOC: JP.ED 12:16 → JP.ICU 14:06 → JP.MS 04-11 13:35
PROVIDERS: ADMIT Hospitalist; ATTEND Internal Medicine
PROC: 0DB98ZX Excision of Duodenum, Via Natural or Artificial Opening Endoscopic, Diagnostic (ICD-10-PCS; principal; 2018-04-11)
PROC: 0DB78ZX Excision of Stomach, Pylorus, Via Natural or Artificial Opening Endoscopic, Diagnostic (ICD-10-PCS; 2018-04-11)
PROC: 0DBH8ZX Excision of Cecum, Via Natural or Artificial Opening Endoscopic, Diagnostic (ICD-10-PCS; 2018-04-11)
PROC: 0DBL8ZX Excision of Transverse Colon, Via Natural or Artificial Opening Endoscopic, Diagnostic (ICD-10-PCS; 2018-04-11)
DX: A41.9 Sepsis, unspecified organism (principal); R65.20 Severe sepsis without septic shock; K25.0 Acute gastric ulcer with hemorrhage; J96.91 Respiratory failure, unspecified with hypoxia; J44.0 Chronic obstructive pulmonary disease with (acute) lower respiratory infection; N17.9 Acute kidney failure, unspecified; K92.1 Melena; D62 Acute posthemorrhagic anemia; J20.9 Acute bronchitis, unspecified; J44.9 Chronic obstructive pulmonary disease, unspecified; I12.9 Hypertensive chronic kidney disease with stage 1 through stage 4 chronic kidney disease, or unspecified chronic kidney disease; R06.02 Shortness of breath; R09.02 Hypoxemia; R19.7 Diarrhea, unspecified; I48.91 Unspecified atrial fibrillation; F17.210 Nicotine dependence, cigarettes, uncomplicated; R65.21 Severe sepsis with septic shock; N18.9 Chronic kidney disease, unspecified; H54.7 Unspecified visual loss; H91.90 Unspecified hearing loss, unspecified ear; Z79.01 Long term (current) use of anticoagulants; Z79.52 Long term (current) use of systemic steroids; K31.89 Other diseases of stomach and duodenum; K57.30 Diverticulosis of large intestine without perforation or abscess without bleeding
CPT/HCPCS: 36415; 36600; 71045 ×2; 80053; 81001; 82803; 83605; 83880; 84484; 85025; 86850; 86900; 86901; 86920; 86922; 87040 ×2; 87070; 87205; 93005; 94640; 94660; 96360; 99285; J7030; 51702; 71250; 74176; 80048; 83735; 85018; 85027; 87081; 88305; 97110-GP; 97162-GP; 97530-GP; A9270-GY; C9113; J1940; J1956; J2250; J2543; J2704; J2920; J3010; J3370; J3475; J7050; J7060; J7120; J7620

== ENCOUNTER 2021-04-30 06:33 | Day surgery (SDC) | payer MEDICAID, MEDICARE ==
[~2021-04-30 06:33] MED LIST: Sodium Chloride 0.9% 1,000 ML IV SCH
[2021-04-30] MEDS ORDERED: Sodium Chloride 0.9% 1,000 ML IV SCH (07:00)
[2021-04-30] MEDS ORDERED: fentaNYL 100 MCG/2 ML SDV ONE (07:44)
[2021-04-30] MEDS ORDERED: Propofol 200 MG/20 ML SDV ONE ×2 (07:44→08:25)
--- NOTE | 2021-05-01 07:12 | OR ---
DATE OF PROCEDURE: 04/30/2021 SURGEON: Georges Tee MD PROCEDURE: Colonoscopy. FINDINGS/PATHOLOGY: 1. Cecal polyp, approximately 6 mm, completely removed using endoscopic mucosal resection. 2. Ascending colon polyp #1, approximately 8 mm, completely removed using hot snare wire device. 3. Ascending #2, completely removed using snare. 4. Ascending colon polyp #3, completely removed using cold biopsy forceps. 5. Transverse colon polyp, approximately 8 mm, completely removed using hot snare wire device. 6. Diverticulosis, moderate, mostly densely concentrated in sigmoid colon but throughout entire colon. 7. Tortuous sigmoid colon. COMPLICATIONS: None. [employer]: None. ANESTHESIA: MAC. PREOPERATIVE DIAGNOSIS: Screening colonoscopy. POSTOPERATIVE DIAGNOSIS: Screening colonoscopy. RISKS: Risks, benefits, alternatives, and limitations including but not limited to infection, bleeding, perforation, and false positives and false negatives were explained to the patient. They wished to proceed. PROCEDURE IN DETAIL: The patient was placed in left lateral decubitus position. Digital rectal exam was performed without abnormality. Scope was introduced and advanced atraumatically into the ileocecal valve. At the cecum, the first of these several polyps were identified. All the polyps were removed as described above and no abnormal bleeding was noted on removal. As the scope was brought back through the colon then diverticulosis was noted to be present without evidence of diverticulitis or bleeding. No abnormalities on retroflexion. Prep was marginal, approximately 85% to 90% of luminal surface could be seen due to retained solid stool. Greater than 8 minutes was spent removing the scope. No colitis or old or new blood noted. Of note, the patient has prominent internal hemorrhoids. The patient tolerated the procedure well. Georges Tee MD /[id number]
== END 2021-04-30 10:20 | disposition home or self-care (01) ==
LOC: JP.SDS 06:33
PROVIDERS: ATTEND Surgery
DX: Z12.11 Encounter for screening for malignant neoplasm of colon (principal); D12.0 Benign neoplasm of cecum; D12.2 Benign neoplasm of ascending colon; D12.3 Benign neoplasm of transverse colon; K57.30 Diverticulosis of large intestine without perforation or abscess without bleeding; J44.9 Chronic obstructive pulmonary disease, unspecified; I50.9 Heart failure, unspecified; I48.91 Unspecified atrial fibrillation; I13.0 Hypertensive heart and chronic kidney disease with heart failure and stage 1 through stage 4 chronic kidney disease, or unspecified chronic kidney disease; N18.9 Chronic kidney disease, unspecified
CPT/HCPCS: 45380; 45385; 45390; J2704; J3010; J7030; 88305